=== PATIENT | male | born 1960 | race Caucasian/White ===

== ENCOUNTER → 2016-11-27 | Outpatient (CLI) | payer BC ==
--- NOTE | 2016-11-27 08:10 | XR ---
EXAMINATION TYPE: XR Hip Complete RT DATE OF EXAM: 11/27/2016 7:50 AM CLINICAL HISTORY: Right hip pain increasing in severity over 1 year TECHNIQUE: AP and frogleg views of the right hip are obtained. COMPARISON: None. FINDINGS: Osseous structures are demineralized which is noted to lower radiographic sensitivity Ther e is no acute fracture/dislocation evident in the right hip. There is advanced superior joint space l oss. There is ossific fragmentation from superolateral aspect of the acetabulum. There is some subcho ndral cystic change in the femoral head. There is moderate spurring at head neck junction inferiorly. Some right-sided pelvic phleboliths and vascular calcification is present in the pelvis. IMPRESSION: There is moderate to severe degenerative changes in right hip as detailed above
== END | disposition home or self-care (01) ==
LOC: RADXRMAIN 07:29
PROVIDERS: ATTEND Family Medicine
DX: M25.851 Other specified joint disorders, right hip (principal); R10.30 Lower abdominal pain, unspecified
CPT/HCPCS: 73502

== ENCOUNTER → 2017-08-18 | Outpatient (CLI) | payer BC ==
[2017-08-18 14:25] LABS: EKG EKG PERFORMED
[2017-08-18 14:55] LABS: Basophils # (A) 0.1 k/uL (0-0.2); Basophils % (A) 1 %; CH 34.7; CHCM 33.8; Eosinophils # (A) 0.2 k/uL (0-0.7); Eosinophils % (A) 2 %; HCT 51.2 % (39.0-53.0); HDW 2.44; HGB 16.8 gm/dL (13.0-17.5); Luc # (Auto) 0.11; Luc % (Auto) 2; Lymphocytes # (A) 1.5 k/uL (1.0-4.8); Lymphocytes % (A) 21 %; MCH 33.8 pg (25.0-35.0); MCHC 32.8 g/dL (31.0-37.0); MCV 103.3 fL (80.0-100.0); Macrocytosis Slight; Mean Platelet Volume 8.3; Monocytes # (A) 0.5 k/uL (0-1.0); Monocytes % (A) 8 %; Neutrophils # (A) 4.7 k/uL (1.3-7.7); Neutrophils % (A) 67 %; RBC 4.96 m/uL (4.30-5.90); RDW 13.4 % (11.5-15.5); WBC (Perox) 6.81
[2017-08-18 15:02] LABS: ALT 68 U/L (21-72); AST 35 U/L (17-59); Alkaline Phosphatase 79 U/L (38-126); Anion Gap 15 mmol/L; Blood Urea Nitrogen 19 mg/dL (9-20); Carbon Dioxide 22 mmol/L (22-30); Chloride 105 mmol/L (98-107); Glucose 114 mg/dL (74-99); Non-African American GFR(MDRD) >60 (>60 ml/min/1.73 sqM); Potassium 4.9 mmol/L (3.5-5.1); Sodium 142 mmol/L (137-145); Total Bilirubin 0.5 mg/dL (0.2-1.3); Total Protein 7.7 g/dL (6.3-8.2)
[2017-08-18 15:04] LABS: Appearance,Urine Clear (Clear); Bilirubin,Urine Negative (Negative); Glucose,Urine (UA) Negative (Negative); Ketones,Urine 2+ (Negative); Leukocyte Esterase,Urine Negative (Negative); Nitrite,Urine Negative (Negative); PH, Urine 5.5 (5.0-8.0); Protein,Urine Negative (Negative); Specific Gravity,Urine 1.014 (1.001-1.035); UA Billing (MACRO vs. MICRO) CHEM; Urobilinogen,Urine <2.0 mg/dL (<2.0)
[2017-08-18 15:11] LABS: INR 1.1 (<1.2); Prothrombin Time 11.4 sec (9.0-12.0)
== END | disposition home or self-care (01) ==
LOC: LABPAT 13:54
PROVIDERS: ATTEND Orthopaedic Surgery
DX: Z01.810 Encounter for preprocedural cardiovascular examination (principal); Z01.812 Encounter for preprocedural laboratory examination
CPT/HCPCS: 80053; 81003; 85025; 85610; 85730; 87070; 93005

== ENCOUNTER 2017-08-30 07:55 | Inpatient (IN) | payer BC ==
[2017-08-22 08:33] VITALS: BMI 31.3
[~2017-08-30 07:55] MED LIST: ACETAMINOPHEN TAB 500 MG TAB PO ONE; MELOXICAM 7.5 MG TAB PO ONE; ONDANSETRON 4 MG/2 ML VIAL IVP PRN; ROPIVACAINE 246.25 MG, EPINEPHrine 0.5 MG, KETOROLAC 30 MG, cloNIDine HCL/PF 80 MCG, WA... MISCELLANE ONE; TRANEXAMIC ACID 1,000 MG in SODIUM CHLORIDE 0.9% 100 ML IVPB ONE; ceFAZolin 2 GM in SODIUM CHLORIDE 0.9% 100 ML IVPB ONE
[2017-08-30] MEDS ORDERED: LACTATED RINGERS 1,000 ML IV ONE ×2 (08:14→11:15)
[2017-08-30 08:26] LABS: Glucose,Whole Blood 125 mg/dL (75-99)
[2017-08-30] MEDS ORDERED: HYDROmorphone 1 MG/ML 1 ML SYRINGE IVP PRN (09:39)
[2017-08-30] MEDS ORDERED: DIAZEPAM 5 MG TAB PO PRN ×2 (09:39)
[2017-08-30] MEDS ORDERED: MAGNESIUM HYDROXIDE 2,400 MG/10 ML CUP PO PRN (09:39)
[2017-08-30] MEDS ORDERED: hydrOXYzine PAMOATE 25 MG CAP PO PRN (09:39)
[2017-08-30] MEDS ORDERED: ONDANSETRON 4 MG/2 ML VIAL IVP PRN ×2 (09:39→20:06)
[2017-08-30] MEDS ORDERED: HYDROcodone/APAP 5-325MG 1 EACH TAB PO PRN (09:39)
[2017-08-30] MEDS ORDERED: HYDROmorphone 0.5 MG/0.5 ML SYRINGE IVP PRN ×2 (09:39)
[2017-08-30] MEDS ORDERED: NALOXONE 0.4 MG/ML 1 ML VIAL IV PRN (09:39)
[2017-08-30] MEDS ORDERED: PHENYLEPHRINE-0.9% NACL SYG 1 MG/10 ML SYRINGE ONE (10:07)
[2017-08-30] MEDS ORDERED: SODIUM CHLORIDE 0.9% IRRIG 1,000 ML BTL IRRIGATION ONE (10:07)
[2017-08-30] MEDS ORDERED: HEPARIN SODIUM,PORCINE 10,000 UNIT/ML 1 ML VIAL ONE (10:07)
[2017-08-30] MEDS ORDERED: PROPOFOL 10 MG/ML 20 ML VIAL IV ONE (10:07)
[2017-08-30] MEDS ORDERED: SODIUM CHLORIDE 0.9% 100 ML BAG ONE (10:07)
[2017-08-30] MEDS ORDERED: MIDAZOLAM 2 MG/2 ML VIAL ONE (10:07)
[2017-08-30] MEDS ORDERED: fentaNYL (PF) 50 MCG/ML 2 ML AMP ONE (10:07)
[2017-08-30] MEDS ORDERED: TRANEXAMIC ACID 1,000 MG/10 ML VIAL ONE (10:07)
[2017-08-30] MEDS ORDERED: KETAMINE 10 MG/ML 20 ML VIAL ONE (10:07)
[2017-08-30] MEDS ORDERED: ceFAZolin 3,000 MG in SODIUM CHLORIDE 0.9% IRRIGATIO 3,000 ML IRRIGATION ONE (10:10)
--- NOTE | 2017-08-30 11:49 | FL ---
EXAMINATION TYPE: FL guidance operating room, XR Hip Limited RT DATE OF EXAM: 08/30/2017 CLINICAL HISTORY: Right hip advanced osteoarthritis. TECHNIQUE: Fluoroscopy. Limited views right hip COMPARISON: None. FINDINGS: Fluoroscopic guidance was provided during hip replacement procedure performed by Dr. Hanna stoddard. A total of 48 seconds of fluoroscopic time was utilized during the procedure and 2 spot intraop erative images are acquired. Intraoperative limited views right hip show metallic hardware from total right hip arthroplasty that is satisfactory in position on single frontal projection. IMPRESSION: As Above.
--- NOTE | 2017-08-30 11:51 | P.OP ---
Date of Procedure: 08/30/17 Preoperative Diagnosis: Severe osteoarthritis right hip Postoperative Diagnosis: Severe osteoarthritis right hip Procedure(s) Performed: Right total hip arthroplasty with a direct anterior approach Implants: Zhu and nephew Polarstem size 3 standard Zhu & Nephew R3, 3 hole acetabular shell, 54 mm Zhu [employer] Nephew reflection 6.5 mm cancellus screw, 20 mm 2 Zhu [employer] Nephew R3, XLPE 20 acetabular liner Zhu & Nephew Oxinium femoral head 36 m, +4 All components were press-fit. The articulation is Oxinium on polyethylene. Anesthesia: spinal Surgeon: Kennedy Zamora Easter Bunny #1: Virginia Fried Estimated Blood Loss (ml): 700 (278 mL returned with Cell Saver) Pathology: other (Femoral head) Condition: stable Disposition: PACU Indications for Procedure: After failure of conservative treatment we discussed the surgical and nonsurgical treatment options at length. Patient wishes to proceed with a total hip arthroplasty with a direct anterior approach. Complications specific to this procedure were discussed at length, including but not limited to infection, leg length discrepancy, dislocation, and nerve injury. Patient is aware of all these complications and informed consent was obtained Operative Findings: The operative findings are consistent with severe osteoarthritis of the right hip Description of Procedure: Patient was seen and evaluated in the preoperative area, consent was reviewed, and the surgical site was marked with a skin marker. Patient was then brought to the operating room and given prophylactic antibiotics intravenously. 1 g of Tranexamic acid was also given. A spinal anesthetic was administered by the anesthesia department. The patient was then placed on the [place] table with the bony prominences well-padded. The hip area was then prepped and draped in usual sterile fashion. A universal timeout was then performed, which confirmed the patient's name, surgical site, ALLERGIES, and procedure being performed. Next the incision site was located at 1 cm distal and 1 cm lateral to the anterior superior iliac spine. The skin and subcutaneous tissues were sharply incised. Incision was carefully dissected down to the fascia overlying the tensor fascia qi muscle. This fascia was then incised in line with the incision. Next, using blunt finger dissection, the tensor fascia qi muscle was dissected off its investing fascia. The muscle was then carefully retracted laterally with a cobra retractor over the lateral neck of the femur. Next, the circumflex vessels were identified and cauterized using the AquaMantis device. The anterior hip capsule was then exposed. The capsule was then opened and an inverted T fashion. Cobra retractors were then placed intracapsularly. The proximal femur was then visualized. The femoral neck was then osteotomized appropriate level above the lesser trochanter. Small amount of traction was placed with the [place] table. A small wedge of bone was then removed from the remaining femoral head. Next, using a corkscrew femoral head was easily removed from the acetabulum. On gross visual inspection, the femoral head had complete loss of articular cartilage in multiple periarticular osteophytes. Attention was then turned to the acetabulum. the acetabulum was exposed and any remaining labrum was excised. Sequential reaming of the acetabulum was performed using fluoroscopic guidance. When the appropriate size was reached, a trial was then placed. The position and fit of the trial was checked with fluoroscopy. The trial was then removed. Then, using fluoroscopic guidance, the final implant was impacted at 20 of anteversion and 40 of abduction, and fully seated in the acetabulum. 2 screws were then placed in the acetabulum. Again fluoroscopy was used to check position of the screws. Next, the liner was then impacted, with a 20 elevated liner located in the anterior superior quadrant. Component locking was confirmed. Attention was then directed to the femur. With the aid of the [place] table, the femur was externally rotated to approximately 130, extended, and abducted under the opposite leg. A side hook was then placed under the proximal femur, and the side hook elevator was used to elevate the proximal femur. Retractors were then placed. A capsular release was performed, as well as a release of the conjoined tendon, which afforded excellent visualization of the proximal femur. Next, a box osteotome was used to lateralize the proximal femur. A digester hand was then used to locate the femoral canal. Sequential broaching was then performed with appropriate size which afforded excellent fixation in the proximal femur. A trial was then placed with appropriate head and neck, and the hip was gently reduced with the aid of the [place] table. Fluoroscopy was then used to check position of the components, as well as to ensure equal leg lengths. The hip was then gently dislocated and the trials were then removed. Final implants were then impacted and the hip was again reduced. Final fluoroscopic x-rays confirmed that the components were in anatomic position, as well as equal leg lengths. The hip was also taken through range of motion, and found to be stable. The hip was then copiously irrigated with antibiotic solution with pulsatile lavage. The hip was then irrigated with Irrisept solution. The soft tissues were then injected with a ropivacaine solution, which consisted of 246.25 mg of ropivacaine, 0.5 mg of epinephrine, 30 mg of Toradol, 80 g of clonidine, and 48.45 mL of sterile water, for a total of 100 mL of fluid injected. A second dose of 1 g of Tranexamic acid was also given. the fascia was then closed with 2-0 strata fix suture. The subcutaneous tissue was closed with 3-0 Vicryl. The subcuticular tissue was closed with 3-0 strata fix suture. The skin was then closed with Dermabond tape. The patient was then transferred to the recovery room in stable condition. The business support assistant GARETT Walton was required due to the complexity of surgery, and the need for skilled surgical elastic knitter hand frame for positioning, draping, exposure, retraction, and closure of the wound.
[2017-08-30 12:31] LABS: Glucose,Whole Blood 145 mg/dL (75-99)
--- NOTE | 2017-08-30 12:34 | XR ---
EXAMINATION TYPE: XR Hip Limited RT DATE OF EXAM: 08/30/2017 CLINICAL HISTORY: Postoperative evaluation TECHNIQUE: Single portable view of the right hip was submitted. FINDINGS: Noted are changes of total hip arthroplasty with femoral and acetabular components appearin g well seated. Alignment is anatomic. Postsurgical soft tissue changes are evident. IMPRESSION: Satisfactory postoperative alignment
[2017-08-30] MEDS: HYDROmorphone 0.5 MG/0.5 ML SYRINGE IVP PRN ×2 (13:11→13:51)
[2017-08-30] MEDS: LACTATED RINGERS 1,000 ML IV SCH ×2 (14:00→15:44)
[2017-08-30] MEDS: SODIUM CHLORIDE 0.9% 1,000 ML IV SCH ×2 (15:34→23:57)
[2017-08-30 16:54] LABS: Glucose,Whole Blood 151 mg/dL (75-99)
[2017-08-30] MEDS: ceFAZolin 2 GM in SODIUM CHLORIDE 0.9% 100 ML IVPB SCH (17:27)
[2017-08-30 20:41] LABS: Glucose,Whole Blood 161 mg/dL (75-99)
[2017-08-30] MEDS: INSULIN LISPRO (humaLOG) 300 UNIT/3 ML VIAL SQ SCH (20:44)
[2017-08-30] MEDS: ASPIRIN 325 MG TAB PO SCH (20:45)
[2017-08-30] MEDS: metFORMIN 500 MG TAB PO SCH (20:45)
[2017-08-30] MEDS: HYDROcodone/APAP 5-325MG 1 EACH TAB PO PRN (20:52)
[2017-08-30] MEDS ORDERED: ATORVASTATIN 40 MG TAB PO SCH (21:00)
[2017-08-30] MEDS ORDERED: SENNOSIDES-DOCUSATE SODIUM 1 EACH TAB PO SCH (21:00)
[2017-08-30] MEDS ORDERED: INSULIN DETEMIR 100 UNIT/ML 10 ML VIAL SQ SCH (21:00)
[2017-08-31] MEDS: ceFAZolin 2 GM in SODIUM CHLORIDE 0.9% 100 ML IVPB SCH (02:41)
[2017-08-31] MEDS: HYDROcodone/APAP 5-325MG 1 EACH TAB PO PRN ×2 (05:26→11:29)
[2017-08-31 07:20] LABS: Glucose,Whole Blood 153 mg/dL (75-99)
[2017-08-31 07:23] VITALS: BP 132/83; PULSE 81; RESP 16; TEMP 97.7
[2017-08-31] MEDS: ASPIRIN 325 MG TAB PO SCH (07:50)
[2017-08-31] MEDS: metFORMIN 500 MG TAB PO SCH (07:51)
[2017-08-31 07:57] LABS: Basophils % (A) 0 %; CHCM 34.1; Eosinophils # (A) 0.1 k/uL (0-0.7); Eosinophils % (A) 1 %; HCT 40.5 % (39.0-53.0); Luc % (Auto) 1; Lymphocytes # (A) 1.1 k/uL (1.0-4.8); Lymphocytes % (A) 13 %; MCH 33.8 pg (25.0-35.0); MCHC 32.7 g/dL (31.0-37.0); MCV 103.2 fL (80.0-100.0); Macrocytosis Slight; Mean Platelet Volume 8.5; Monocytes # (A) 0.9 k/uL (0-1.0); Monocytes % (A) 10 %; Neutrophils # (A) 6.2 k/uL (1.3-7.7); Neutrophils % (A) 74 %; RBC 3.92 m/uL (4.30-5.90); RDW 13.3 % (11.5-15.5); WBC 8.4 k/uL (3.8-10.6); WBC (Perox) 8.44
[2017-08-31 08:11] LABS: HGB 13.2 gm/dL (13.0-17.5)
[2017-08-31] MEDS: INSULIN LISPRO (humaLOG) 300 UNIT/3 ML VIAL SQ SCH ×2 (08:12→12:25)
--- NOTE | 2017-08-31 08:20 | P.DS ---
Providers Date of admission: 08/30/17 07:55 Expected date of discharge: 08/31/17 Attending physician: Kennedy Zamora Consults: 08/30/17 09:39 Consult Physician Routine Consulting Provider: Dixon Lee Jr Consult Reason/Comments: medical management Do you want consulting provider notified?: Yes Primary care physician: Dixon Lee - Discharge Diagnosis(es) (1) Primary osteoarthritis of right hip Current Visit: Yes Status: Acute (2) S/P total hip arthroplasty Current Visit: Yes Status: Acute Hospital Course: This is a 57-year-old male with known history of degenerative arthritis of the right hip. The patient presents for evaluation. After discussion and consideration patient elects to proceed with total hip arthroplasty. The patient is seen preoperatively by Dr. Zamora and cleared for surgery. Patient is admitted to [facility] on 08/30/2017 for total hip arthroplasty. The procedures performed without complication or sequelae. The patient is doing well postoperatively. Labs and vital signs are stable on day of discharge. On day of discharge patient's hip incision is healing well. There is minimal erythema. There is no drainage noted at this time. There is minimal soft tissue swelling to the hip and thigh. Patient has full foot and ankle motion without difficulty or pain. Neurovascular status to the right lower extremity is intact. Patient is discharged home in good condition.Please see med rec for accurate list of home medications. Plan - Discharge Summary New Discharge Prescriptions: New Aspirin 325 mg PO BID #60 tab HYDROcodone/APAP 5-325MG [[place] 5-325] 1 - 2 tab PO Q4-6H PRN #90 tab PRN Reason: Pain Sennosides-Docusate Sodium [Senokot-S] 1 tab PO BID #60 tablet No Action metFORMIN HCL [Glucophage] 500 mg PO BID Quinapril HCl 10 mg PO DAILY Cholecalciferol [Vitamin D3] 5,000 unit PO BID Atorvastatin [Lipitor] 40 mg PO HS Insulin Detemir [Levemir] 8 - 16 unit SQ HS Insulin Aspart [Novolog] 6 - 8 unit SQ AC-TID PRN PRN Reason: TO SCALE Ibuprofen [Motrin] 800 mg PO Q8H PRN PRN Reason: Pain Fish Oil/Dha/Epa [Fish Oil 1,200 mg Fish Oil] 2 cap PO BID Aspirin [Adult Low Dose Aspirin EC] 81 mg PO DAILY Discharge Medication List Aspirin [Adult Low Dose Aspirin EC] 81 mg PO DAILY 08/23/17 [History] Atorvastatin [Lipitor] 40 mg PO HS 08/23/17 [History] Cholecalciferol [Vitamin D3] 5,000 unit PO BID 08/23/17 [History] Fish Oil/Dha/Epa [Fish Oil 1,200 mg Fish Oil] 2 cap PO BID 08/23/17 [History] Ibuprofen [Motrin] 800 mg PO Q8H PRN 08/23/17 [History] Insulin Aspart [Novolog] 6 - 8 unit SQ AC-TID PRN 08/23/17 [History] Insulin Detemir [Levemir] 8 - 16 unit SQ HS 08/23/17 [History] Quinapril HCl 10 mg PO DAILY 08/23/17 [History] metFORMIN HCL [Glucophage] 500 mg PO BID 08/23/17 [History] Aspirin 325 mg PO BID #60 tab 08/31/17 [Rx] HYDROcodone/APAP 5-325MG [[place] 5-325] 1 - 2 tab PO Q4-6H PRN #90 tab 08/31/17 [ Rx] Sennosides-Docusate Sodium [Senokot-S] 1 tab PO BID #60 tablet 08/31/17 [Rx] Follow up Appointment(s)/Referral(s): Kennedy Zamora DO [Doctor of Osteopathic Medicine] - 2 Weeks Activity/Diet/Wound Care/Special Instructions: Weightbearing as tolerated with walker May shower after 2 days if no drainage from the incision Follow-up with [facility] in 2 weeks with any questions or concerns Discharge Disposition: HOME WITH HOME HEALTH SERVICES
[2017-08-31] MEDS ORDERED: MELOXICAM 7.5 MG TAB PO SCH (09:00)
[2017-08-31] MEDS ORDERED: LISINOPRIL 10 MG TAB PO SCH (09:00)
[2017-08-31 12:24] LABS: Glucose,Whole Blood 202 mg/dL (75-99)
[2017-08-31] MEDS ORDERED: HYDROcodone/APAP 5-325MG 1 EACH TAB PO PRN ×2 (12:39→12:41)
[2017-08-31 12:40] LABS: Hemoglobin A1C 6.8 % (4.2-6.1)
--- NOTE | 2017-08-31 14:05 | P.CONS ---
History of Present Illness - Reason for Consult Consult date: 08/31/17 - Chief Complaint Medical Management - History of Present Illness 57 year old male who underwent a right total hip arthroplasty with Dr. Zamora on 08/30/17. He was admitted after surgery to the surgical unit and Dr. Lee was consulted for medical management. The patient has a history of diabetes mellitus, hyperlipidemia, hypertension, and osteoarthritis. The patient was seen and examined at the bedside. He is sitting up in the chair. He feels good and is anticipating discharge this afternoon. He states his pain is tolerable. He is eating a regular diet with no nausea or vomiting. His vital signs are stable. Lab work was reviewed. Review of Systems Those systems with pertinent positive or pertinent negative responses have been documented in the HPI Past Medical History Past Medical History: Diabetes Mellitus, Hyperlipidemia, Hypertension, Osteoarthritis (OA) History of Any Multi-Drug Resistant Organisms: None Reported Past Surgical History: Orthopedic Surgery Additional Past Surgical History / Comment(s): bilat knee scope. colonoscopy Past Anesthesia/Blood Transfusion Reactions: No Reported Reaction Additional Psychological History / Comment(s): CLAUSTROPHOBIA Smoking Status: Never smoker Past Alcohol Use History: None Reported Past Drug Use History: None Reported - Past Family History Mother Family Medical History: Cancer Father Family Medical History: Cancer Medications and Allergies Home Medications Medication Instructions Recorded Confirmed Type Aspirin [Adult Low Dose Aspirin EC] 81 mg PO DAILY 08/23/17 08/30/17 History Atorvastatin [Lipitor] 40 mg PO HS 08/23/17 08/30/17 History Cholecalciferol [Vitamin D3] 5,000 unit PO BID 08/23/17 08/30/17 History Fish Oil/Dha/Epa [Fish Oil 1,200 2 cap PO BID 08/23/17 08/30/17 History mg Fish Oil] Ibuprofen [Motrin] 800 mg PO Q8H PRN 08/23/17 08/30/17 History Insulin Aspart [Novolog] 6 - 8 unit SQ AC-TID PRN 08/23/17 08/30/17 History Insulin Detemir [Levemir] 8 - 16 unit SQ HS 08/23/17 08/30/17 History Quinapril HCl 10 mg PO DAILY 08/23/17 08/30/17 History metFORMIN HCL [Glucophage] 500 mg PO BID 08/23/17 08/30/17 History Aspirin 325 mg PO BID #60 tab 08/31/17 Rx HYDROcodone/APAP 5-325MG [[place] 1 - 2 tab PO Q4-6H PRN #90 tab 08/31/17 Rx 5-325] Sennosides-Docusate Sodium 1 tab PO BID #60 tablet 08/31/17 Rx [Senokot-S] Allergies Allergy/AdvReac Type Severity Reaction Status Date / Time No Known Allergies Allergy Verified 08/30/17 15:17 Physical Exam Vitals: Vital Signs Temp Pulse Resp BP Pulse Ox 08/31/17 07:00 97.7 F 81 16 132/83 96 08/31/17 02:24 97.8 F 80 17 124/72 94 L 08/30/17 20:54 96.8 F L 84 17 140/68 98 08/30/17 16:30 69 129/76 08/30/17 16:15 133/75 08/30/17 16:00 71 152/94 08/30/17 15:45 74 143/78 08/30/17 15:30 75 147/95 08/30/17 15:15 69 145/92 08/30/17 15:00 141/86 08/30/17 14:45 70 110/87 08/30/17 14:30 68 139/80 08/30/17 14:15 96.9 F L 67 16 150/84 97 Intake and Output 08/30/17 08/31/17 08/31/17 22:59 06:59 14:59 Intake Total 800 Output Total 400 Balance -400 800 Intake: Intake, IV Titration 800 Amount Sodium Chloride 0.9% 1, 800 000 ml @ 70 mls/hr IV . [id number] [facility] Rx#:[id number] Output: Urine 400 Other: # Voids 3 Weight 93.44 kg GENERAL: Alert and oriented. Appears in no acute distress. Pleasant. Sitting up in the chair. RESPIRATORY: Lungs clear bilaterally. No use of accessory muscles. Patient maintaining oxygen saturation greater than 92%. CARDIOVASCULAR: S1 and S2 noted. No murmurs auscultated. No JVD noted. EXTREMITIES: No edema noted. Palpable pedal pulses +2. Dressing dressing to right hip clean dry and intact ABDOMEN: No distention noted. Abdomen soft and round. Normal active bowel sounds auscultated 4 quadrants. No pain or tenderness noted upon palpation. Results CBC & Chem 7: 08/31/17 06:45 Labs: Abnormal Lab Results - Last 24 Hours (Table) 08/30/17 08/30/17 08/31/17 Range/Units 16:33 20:28 06:45 RBC (4.30-5.90) m/uL MCV (80.0-100.0) fL POC Glucose (mg/dL) 151 H 161 H (75-99) mg/dL Hemoglobin A1c 6.8 H (4.2-6.1) % 08/31/17 08/31/17 08/31/17 Range/Units 06:45 07:18 12:17 RBC 3.92 L (4.30-5.90) m/uL MCV 103.2 H (80.0-100.0) fL POC Glucose (mg/dL) 153 H 202 H (75-99) mg/dL Hemoglobin A1c (4.2-6.1) % Assessment and Plan Plan: ASSESSMENT: -S/P right total hip arthroplasty -Osteoarthritis -Diabetes mellitus, type II -Essential hypertension -hyperlipidemia PLAN: -Continue post operative surgical care per orthopedics -Resume home meds as appropriate -Monitor labs -GI/DVT prophylaxis -Monitor vital signs and address as appropriate -Patient is medically cleared for discharge when okay with ortho The above impression and plan of care have been discussed and directed by signing physician. Ashlie Lopez, nurse practitioner, acting as scribe for signing physician.
== END 2017-08-31 13:47 | disposition home health service (06) | DRG 470 ==
LOC: 2ORMAIN 07:55 → 3SUR 11:58
PROVIDERS: ADMIT Orthopaedic Surgery; ATTEND Orthopaedic Surgery
PROC: 0SR906A Replacement of Right Hip Joint with Oxidized Zirconium on Polyethylene Synthetic Substitute, Uncemented, Open Approach (ICD-10-PCS; principal; 2017-08-30 09:45)
DX: M16.11 Unilateral primary osteoarthritis, right hip (principal); E11.9 Type 2 diabetes mellitus without complications; E78.5 Hyperlipidemia, unspecified; I10 Essential (primary) hypertension; Z79.1 Long term (current) use of non-steroidal anti-inflammatories (NSAID); Z79.4 Long term (current) use of insulin; Z79.899 Other long term (current) drug therapy; Z79.82 Long term (current) use of aspirin
CPT/HCPCS: 36415; 73501; 83036; 85025; 86850; 86891; 86900; 86901; 88300

== ENCOUNTER 2025-03-06 19:13 | Inpatient (IN) | payer MEDICARE ==
--- NOTE | 2025-03-06 20:08 | ED ---
Abdominal Pain HPI - General Source: patient, RN notes reviewed Mode of arrival: wheelchair Limitations: no limitations <Kd Arroyo - Last Filed: 03/06/25 23:33> <Silvia Mckenzie - Last Filed: 03/07/25 05:02> - General Chief Complaint: Abdominal Pain Stated Complaint: NVD, priya arm numbness Time Seen by Provider: 03/06/25 19:31 - History of Present Illness Initial Comments: This is a 65-year-old male with history of DM, hypertension hyperlipidemia presenting with for abdominal pain (08/30) x 4 days. Patient states pain is diffuse, constant, described as cramping. States pain worsened significantly at noon today with associated N/V/D and decreased appetite. Denies recent trauma or known cause for pain. Denies fever, chills, chest pain, dyspnea, constipation, hematemesis, hematochezia, melena, dysuria, obvious hematuria. (Kd Arroyo) - Related Data Home Medications Medication Instructions Recorded Confirmed Atorvastatin [Lipitor] 20 mg PO HS 08/23/17 01/24/23 Cholecalciferol [Vitamin D3] 5,000 unit PO DAILY 08/23/17 01/24/23 Insulin Aspart [Novolog] 8 unit SQ AC-TID 08/23/17 01/24/23 Quinapril HCl 10 mg PO DAILY 08/23/17 01/24/23 metFORMIN HCL [Glucophage] 500 mg PO DAILY 08/23/17 01/24/23 Insulin Glargine,Hum.rec.anlog 10 units SQ HS 01/18/23 01/24/23 [Lantus Solostar Pen] Previous Rx's Medication Instructions Recorded oxyCODONE HCL [OxyIR] 5 mg PO Q6H PRN 3 Days #6 tab 01/24/23 Allergies Allergy/AdvReac Type Severity Reaction Status Date / Time No Known Allergies Allergy Verified 03/06/25 19:27 Review of Systems ROS Other: All systems not noted in ROS Statement are negative. <Kd Arroyo - Last Filed: 03/06/25 23:33> ROS Other: All systems not noted in ROS Statement are negative. <Silvia Mckenzie - Last Filed: 03/07/25 05:02> ROS Statement: Those systems with pertinent positive or pertinent negative responses have been documented in the HPI. Past Medical History Past Medical History: Diabetes Mellitus, Hyperlipidemia, Hypertension, Osteoarthritis (OA) History of Any Multi-Drug Resistant Organisms: None Reported Past Surgical History: Orthopedic Surgery Additional Past Surgical History / Comment(s): bilat knee scope, bilateral hip replacement. colonoscopy Past Anesthesia/Blood Transfusion Reactions: No Reported Reaction Past Psychological History: No Psychological Hx Reported Smoking Status: Never smoker Past Alcohol Use History: None Reported Past Drug Use History: None Reported - Past Family History Mother Family Medical History: Cancer Father Family Medical History: Cancer <CruzKd - Last Filed: 03/06/25 23:33> General Exam Limitations: no limitations General appearance: alert, in distress (Patient rolling in bed attributed to pain) Head exam: Present: atraumatic, normocephalic, normal inspection Eye exam: Present: normal appearance, PERRL, EOMI. Absent: scleral icterus, conjunctival injection, periorbital swelling ENT exam: Present: normal exam, mucous membranes moist Neck exam: Present: normal inspection. Absent: tenderness, meningismus, lymphadenopathy Respiratory exam: Present: normal lung sounds bilaterally. Absent: respiratory distress, wheezes, rales, rhonchi, stridor, accessory muscle use Cardiovascular Exam: Present: regular rate, normal rhythm, normal heart sounds. Absent: systolic murmur, diastolic murmur, rubs, gallop, clicks GI/Abdominal exam: Present: soft, tenderness (Diffuse abdominal tenderness without guarding. Negative Rovsing, Mcneill sign), normal bowel sounds. Absent: distended, guarding, rebound, rigid, mass, pulsatile mass, hernia Extremities exam: Present: normal inspection, full ROM, normal capillary refill, other (Bilateral dorsalis pedis pulse +1 and thready). Absent: tenderness, pedal edema, joint swelling, calf tenderness Back exam: Present: normal inspection. Absent: CVA tenderness (R), CVA tenderness (L) Neurological exam: Present: alert, oriented X3, CN II-XII intact Psychiatric exam: Present: normal affect, normal mood Skin exam: Present: warm, dry, intact, normal color. Absent: rash <CruzKd - Last Filed: 03/06/25 23:33> Course Vital Signs 03/06/25 03/06/25 03/06/25 19:22 21:24 21:47 Temperature 97.6 F Pulse Rate 90 72 81 Respiratory 18 16 16 Rate Blood Pressure 134/68 136/70 142/98 O2 Sat by Pulse 98 97 98 Oximetry 03/06/25 23:26 Temperature Pulse Rate 84 Respiratory 16 Rate Blood Pressure 108/56 O2 Sat by Pulse 97 Oximetry Medical Decision Making - Lab Data Result diagrams: 03/06/25 20:12 03/06/25 20:12 <Kd Arroyo - Last Filed: 03/06/25 23:33> - Lab Data Result diagrams: 03/06/25 20:12 03/06/25 20:12 <Silvia Mckenzie Mumtaz - Last Filed: 03/07/25 05:02> - Medical Decision Making Was pt. sent in by a medical professional or institution (GARETT Baker, MACHINE OPERATOR CANE CUTTER, urgent care, hospital, or correction...) When possible be specific @ -No Did you speak to anyone other than the patient for history (EMS, parent, family, police, friend...)? What history was obtained from this source @ -No Did you review nursing and triage notes (agree or disagree)? Why? @ -I reviewed and agree with nursing and triage notes Were old charts reviewed (outside hosp., previous admission, EMS record, old EKG, old radiological studies, urgent care reports/EKG's, correction records)? Report findings @ -No old charts were reviewed Differential Diagnosis (chest pain, altered mental status, abdominal pain women, abdominal pain men, vaginal bleeding, weakness, fever, dyspnea, syncope, headache, dizziness, GI bleed, back pain, seizure, CVA, palpatations, mental health, musculoskeletal)? @ -Differential Abdominal Pain Men: Appendicitis, cholecystitis, diverticulosis, ischemic bowel, pancreatitis, hepatitis, UTI, gastroenteritis, AAA, incarcerated hernia, bowel obstruction, constipation, inflammatory bowel, hepatitis, peptic ulcer disease, splenic infarction, perforated viscus, testicular torsion, this is not meant to be an all-inclusive list EKG interpreted by me (3pts min.). @ -Sinus rhythm without ST deviation or T wave inversion. Ventricular rate 88 bpm, KASSY 144 ms, QRS 94 ms, QTc 419 ms. X-rays interpreted by me (1pt min.). @ -CXR shows no acute cardiopulmonary process CT interpreted by me (1pt min.). @ -Abdomen/pelvic CT shows 7 mm right mid ureter calculus with mild right hydronephrosis. 3 renal calculi in left kidney measure between 9-10 mm with partial obstruction and renal pelvis and no left side hydronephrosis. U/S interpreted by me (1pt. min.). @ -None done What testing was considered but not performed or refused? (CT, X-rays, U/S, labs)? Why? @ -None What meds were considered but not given or refused? Why? @ -None Did you discuss the management of the patient with other professionals (jamel peralta i.e. , PA, MACHINE OPERATOR [employer]E CUTTER, lab, RT, psych nurse, social service technician, foundation director, teacher, guest relation officer, home health care case manager)? Give summary @ -Dr. Chu from urology contacted, advising to place patient n.p.o. after midnight. Dr. Lee contacted for patient admission. Was smoking cessation discussed for >3mins.? @ -No Was critical care preformed (if so, how long)? @ -No Were there social determinants of health that impacted care today? How? (Homelessness, low income, unemployed, alcoholism, drug addiction, transportation, low edu. Level, literacy, decrease access to med. care, residential, re hab)? @ -No Was there de-escalation of care discussed even if they declined (Discuss DNR or withdrawal of care, Hospice)? DNR status @ -No What co-morbidities impacted this encounter? (DM, HTN, Smoking, COPD, CAD, Cancer, CVA, ARF, Chemo, Hep., AIDS, mental health diagnosis, sleep apnea, morbid obesity)? @ -None Was patient admitted / discharged? Hospital course, mention meds given and route, prescriptions, significant lab abnormalities, going to OR and other pertinent info. @ -Lab work shows leukocytosis 13.3, anion gap 18 and slightly diminished kidney function with BUN 21. Hyperglycemia 148, lactic acid 2.2 and magnesium 1.5. Troponin, amylase and lipase are within normal limits. UA shows hematuria and ketonuria. CXR shows no acute cardiopulmonary process. Abdomen/pelvic CT shows 7 mm right mid ureter calculus with mild right hydronephrosis. 3 renal calculi in left kidney measure between 9-10 mm with partial obstruction and renal pelvis and no left side hydronephrosis. Patient presenting with significant pain presentation initially provided IV normal saline, Dilaudid, Pepcid, Protonix and Zofran. As well as p.o. Tylenol. Upon return of labs, IV magnesium sulfate provided as well as additional IV Dilaudid and Reglan due to ongoing pain (06/30) and nausea. Due to intractable pain, Dr. Chu from urology contacted, advising to place patient n.p.o. after midnight. Dr. Lee contacted for patient admission. Patient provided p.o. tamsulosin and will continue pain/nausea management until patient can be seen for definitive treatment. Discussed patient with Dr. Mckenzie. Undiagnosed new problem with uncertain prognosis? @ -No Drug Therapy requiring intensive monitoring for toxicity (Heparin, Nitro, Insulin, Cardizem)? @ -No Were any procedures done? @ -No Diagnosis/symptom? @ -Bilateral nephrolithiasis with right hydronephrosis and intractable pain Acute, or Chronic, or Acute on Chronic? @ -Acute Uncomplicated (without systemic symptoms) or Complicated (systemic symptoms)? @ -Complicated Side effects of treatment? @ -No Exacerbation, Progression, or Severe Exacerbation? @ -Severe exacerbation Poses a threat to life or bodily function? How? (Chest pain, [place], [place], pneumonia, PE, COPD, DKA, ARF, appy, cholecystitis, CVA, Diverticulitis, Homicidal, Suicidal, threat to staff... and all critical care pts) @ -No (Kd Arroyo) - Lab Data Lab Results 03/06/25 03/06/25 03/06/25 Range/Units 19:38 20:12 20:12 WBC 13.33 H (4.50-10.00) 10*3/uL RBC 5.10 (4.40-5.60) 10*6/uL Hgb 17.0 (13.0-17.0) g/dL Hct 46.6 (39.6-50.0) % MCV 91.4 (80.0-97.0) fL MCH 33.3 H (27.0-32.0) pg MCHC 36.5 (32.0-37.0) g/dL Plt Count 253 (140-440) 10*3/uL MPV 10.4 (9.5-12.2) fL Immature Gran % (Auto) 0.4 % Neutrophils % 66.4 % Lymphocytes % 23.2 % Monocytes % 9.2 % Eosinophils % 0.2 % Basophils % 0.6 % Immature Gran # 0.05 H (0.00-0.04) 10*3/uL Neutrophils # 8.86 H (1.80-7.70) 10*3/uL Lymphocytes # 3.09 (0.90-5.00) 10*3/uL Monocytes # 1.23 H (0.20-1.00) 10*3/uL Eosinophils # 0.02 L (0.04-0.35) 10*3/uL Basophils # 0.08 (0.00-0.10) 10*3/uL Sodium 134 L (137-145) mmol/L Potassium 4.8 (3.5-5.1) mmol/L Chloride 103 (98-107) mmol/L Carbon Dioxide 13 L (22-30) mmol/L Anion Gap 18 mmol/L BUN 21 H (9-20) mg/dL Creatinine 1.24 (0.66-1.25) mg/dL Est GFR (CKD-EPI)AfAm 70 (>60 ml/min/1.73 sqM) Est GFR (CKD-EPI)NonAf 60 (>60 ml/min/1.73 sqM) Glucose 148 H (74-99) mg/dL Lactic Ac Sepsis Rflx Plasma Lactic Acid Hernan (0.7-2.0) mmol/L Calcium 9.8 (8.4-10.2) mg/dL Magnesium 1.5 L (1.6-2.3) mg/dL Total Bilirubin 1.9 H (0.2-1.3) mg/dL AST 53 (17-59) U/L ALT 26 (4-49) U/L Alkaline Phosphatase 120 (38-126) U/L Troponin I (0.000-0.034) ng/mL Total Protein 7.6 (6.3-8.2) g/dL Albumin 4.9 (3.5-5.0) g/dL Amylase 50 (30-110) U/L Lipase 145 (23-300) U/L Urine Color Light Yellow Urine Appearance Clear (Clear) Urine pH 5.5 (5.0-8.0) Ur Specific [place] 1.020 (1.001-1.035) Urine Protein Negative (Negative) Urine Glucose (UA) Negative (Negative) Urine Ketones 3+ H (Negative) Urine Blood Large H (Negative) Urine Nitrite Negative (Negative) Urine Bilirubin Negative (Negative) Urine Urobilinogen <2.0 (<2.0) mg/dL Ur Leukocyte Esterase Negative (Negative) Urine RBC 122 H (0-5) /hpf Urine WBC 3 (0-5) /hpf Ur Squamous Epith Cells <1 (0-4) /hpf Fatty Casts 1 (0) /lpf Hyaline Casts 8 H (0-2) /lpf Urine Mucus Occasional H (None) /hpf 03/06/25 03/06/25 03/06/25 Range/Units 20:12 20:21 20:42 WBC (4.50-10.00) 10*3/uL RBC (4.40-5.60) 10*6/uL Hgb (13.0-17.0) g/dL Hct (39.6-50.0) % MCV (80.0-97.0) fL MCH (27.0-32.0) pg MCHC (32.0-37.0) g/dL Plt Count (140-440) 10*3/uL MPV (9.5-12.2) fL Immature Gran % (Auto) % Neutrophils % % Lymphocytes % % Monocytes % % Eosinophils % % Basophils % % Immature Gran # (0.00-0.04) 10*3/uL Neutrophils # (1.80-7.70) 10*3/uL Lymphocytes # (0.90-5.00) 10*3/uL Monocytes # (0.20-1.00) 10*3/uL Eosinophils # (0.04-0.35) 10*3/uL Basophils # (0.00-0.10) 10*3/uL Sodium (137-145) mmol/L Potassium (3.5-5.1) mmol/L Chloride (98-107) mmol/L Carbon Dioxide (22-30) mmol/L Anion Gap mmol/L BUN (9-20) mg/dL Creatinine (0.66-1.25) mg/dL Est GFR (CKD-EPI)AfAm (>60 ml/min/1.73 sqM) Est GFR (CKD-EPI)NonAf (>60 ml/min/1.73 sqM) Glucose (74-99) mg/dL Lactic Ac Sepsis Rflx Y Plasma Lactic Acid Hernan 2.2 H* (0.7-2.0) mmol/L Calcium (8.4-10.2) mg/dL Magnesium (1.6-2.3) mg/dL Total Bilirubin (0.2-1.3) mg/dL AST (17-59) U/L ALT (4-49) U/L Alkaline Phosphatase (38-126) U/L Troponin I 0.025 (0.000-0.034) ng/mL Total Protein (6.3-8.2) g/dL Albumin (3.5-5.0) g/dL Amylase (30-110) U/L Lipase (23-300) U/L Urine Color Urine Appearance (Clear) Urine pH (5.0-8.0) Ur Specific [place] (1.001-1.035) Urine Protein (Negative) Urine Glucose (UA) (Negative) Urine Ketones (Negative) Urine Blood (Negative) Urine Nitrite (Negative) Urine Bilirubin (Negative) Urine Urobilinogen (<2.0) mg/dL Ur Leukocyte Esterase (Negative) Urine RBC (0-5) /hpf Urine WBC (0-5) /hpf Ur Squamous Epith Cells (0-4) /hpf Fatty Casts (0) /lpf Hyaline Casts (0-2) /lpf Urine Mucus (None) /hpf 04/16/25 Range/Units 23:23 WBC (4.50-10.00) 10*3/uL RBC (4.40-5.60) 10*6/uL Hgb (13.0-17.0) g/dL Hct (39.6-50.0) % MCV (80.0-97.0) fL MCH (27.0-32.0) pg MCHC (32.0-37.0) g/dL Plt Count (140-440) 10*3/uL MPV (9.5-12.2) fL Immature Gran % (Auto) % Neutrophils % % Lymphocytes % % Monocytes % % Eosinophils % % Basophils % % Immature Gran # (0.00-0.04) 10*3/uL Neutrophils # (1.80-7.70) 10*3/uL Lymphocytes # (0.90-5.00) 10*3/uL Monocytes # (0.20-1.00) 10*3/uL Eosinophils # (0.04-0.35) 10*3/uL Basophils # (0.00-0.10) 10*3/uL Sodium (137-145) mmol/L Potassium (3.5-5.1) mmol/L Chloride (98-107) mmol/L Carbon Dioxide (22-30) mmol/L Anion Gap mmol/L BUN (9-20) mg/dL Creatinine (0.66-1.25) mg/dL Est GFR (CKD-EPI)AfAm (>60 ml/min/1.73 sqM) Est GFR (CKD-EPI)NonAf (>60 ml/min/1.73 sqM) Glucose (74-99) mg/dL Lactic Ac Sepsis Rflx Plasma Lactic Acid Hernan 1.6 (0.7-2.0) mmol/L Calcium (8.4-10.2) mg/dL Magnesium (1.6-2.3) mg/dL Total Bilirubin (0.2-1.3) mg/dL AST (17-59) U/L ALT (4-49) U/L Alkaline Phosphatase (38-126) U/L Troponin I (0.000-0.034) ng/mL Total Protein (6.3-8.2) g/dL Albumin (3.5-5.0) g/dL Amylase (30-110) U/L Lipase (23-300) U/L Urine Color Urine Appearance (Clear) Urine pH (5.0-8.0) Ur Specific [place] (1.001-1.035) Urine Protein (Negative) Urine Glucose (UA) (Negative) Urine Ketones (Negative) Urine Blood (Negative) Urine Nitrite (Negative) Urine Bilirubin (Negative) Urine Urobilinogen (<2.0) mg/dL Ur Leukocyte Esterase (Negative) Urine RBC (0-5) /hpf Urine WBC (0-5) /hpf Ur Squamous Epith Cells (0-4) /hpf Fatty Casts (0) /lpf Hyaline Casts (0-2) /lpf Urine Mucus (None) /hpf Disposition Is patient prescribed a controlled substance at d/c from ED?: No Time of Disposition: 22:31 Decision Date: 03/06/25 Decision Time: 22:31 <Kd Arroyo - Last Filed: 03/06/25 23:33> <Silvia Mckenzie - Last Filed: 03/07/25 05:02> Clinical Impression: Bilateral nephrolithiasis, Intractable pain, Ureteral stone with hydronephrosis Disposition: ADMITTED IP TO THIS [facility] Condition: Good
[2025-03-06 20:25] LABS: Basophils # (A) 0.08 10*3/uL (0.00-0.10); Basophils % (A) 0.6 %; Eosinophils # (A) 0.02 10*3/uL (0.04-0.35); Eosinophils % (A) 0.2 %; HCT 46.6 % (39.6-50.0); Lymphocytes # (A) 3.09 10*3/uL (0.90-5.00); Lymphocytes % (A) 23.2 %; MCH 33.3 pg (27.0-32.0); MCHC 36.5 g/dL (32.0-37.0); MCV 91.4 fL (80.0-97.0); Mean Platelet Volume 10.4 fL (9.5-12.2); Monocytes # (A) 1.23 10*3/uL (0.20-1.00); Monocytes % (A) 9.2 %; Neutrophils # (A) 8.86 10*3/uL (1.80-7.70); Neutrophils % (A) 66.4 %; Platelet Count 253 10*3/uL (140-440); RDW 12.5 % (11.5-14.5); WBC 13.33 10*3/uL (4.50-10.00)
[2025-03-06] MEDS: SODIUM CHLORIDE 0.9% 1,000 ML IV ONE (20:25)
[2025-03-06] MEDS: PANTOPRAZOLE 40 MG/10 ML VIAL IVP STA (20:26)
[2025-03-06] MEDS: ACETAMINOPHEN TAB 500 MG TAB PO STA (20:26)
[2025-03-06] MEDS: HYDROmorphone 1 MG/ML 1 ML SYRINGE IVP STA ×2 (20:26→22:00)
[2025-03-06] MEDS: FAMOTIDINE 20 MG/2 ML VIAL IV STA (20:26)
[2025-03-06] MEDS: ONDANSETRON 4 MG/2 ML VIAL IVP STA (20:26)
[2025-03-06 20:34] LABS: ALT 26 U/L (4-49); African American GFR (CKD) 70 (>60 ml/min/1.73 sqM); Amylase 50 U/L (30-110); Anion Gap 18 mmol/L; Blood Urea Nitrogen 21 mg/dL (9-20); Calcium 9.8 mg/dL (8.4-10.2); Carbon Dioxide 13 mmol/L (22-30); Chloride 103 mmol/L (98-107); Lipase 145 U/L (23-300); Non-African American GFR(CKD) 60 (>60 ml/min/1.73 sqM); Sodium 134 mmol/L (137-145)
[2025-03-06 20:40] LABS: Albumin 4.9 g/dL (3.5-5.0); Glucose 148 mg/dL (74-99); Potassium 4.8 mmol/L (3.5-5.1); Total Protein 7.6 g/dL (6.3-8.2)
[2025-03-06 20:41] LABS: AST 53 U/L (17-59); Alkaline Phosphatase 120 U/L (38-126); Magnesium 1.5 mg/dL (1.6-2.3); Total Bilirubin 1.9 mg/dL (0.2-1.3)
[2025-03-06 20:49] LABS: Appearance,Urine Clear (Clear); Bilirubin,Urine Negative (Negative); Blood,Urine Large (Negative); Color,Urine Light Yellow; Fatty Casts,Urine 1 /lpf (0); Glucose,Urine (UA) Negative (Negative); Hyaline Casts,Urine 8 /lpf (0-2); Ketones,Urine 3+ (Negative); Leukocyte Esterase,Urine Negative (Negative); Mucus,Urine Occasional /hpf; Nitrite,Urine Negative (Negative); PH, Urine 5.5 (5.0-8.0); Protein,Urine Negative (Negative); RBC,Urine 122 /hpf (0-5); Squamous Epithelial Cell,Urine <1 /hpf (0-4); Urobilinogen,Urine <2.0 mg/dL (<2.0); WBC,Urine 3 /hpf (0-5)
[2025-03-06] MEDS ORDERED: Magnesium Replacement Protocol 1 EACH MISC MISCELLANE PRN (21:28)
[2025-03-06] MEDS: SODIUM CHLORIDE 0.9% 1,000 ML IV STA (21:45)
[2025-03-06] MEDS: MAGNESIUM SULFATE-D5W PMX 1 GM in DEXTROSE/WATER 1 100ML.BAG IVPB SCH (21:46)
--- NOTE | 2025-03-06 21:49 | XR ---
EXAMINATION TYPE: XR chest 2V DATE OF EXAM: 03/06/2025 9:19 PM COMPARISON: None CLINICAL INDICATION: Male, 65 years old with history of Pain; TECHNIQUE: XR chest 2V Frontal and lateral views of the chest. FINDINGS: Lungs/Pleura: There is no evidence of pleural effusion, focal consolidation, or pneumothorax. Pulmonary vascularity: Unremarkable. Heart/mediastinum: Cardiomediastinal silhouette is unremarkable. Musculoskeletal: No acute osseous pathology. IMPRESSION: No acute cardiopulmonary disease/process. [facility], , 03/06/2025 9:47 PM
[2025-03-06] MEDS: METOCLOPRAMIDE 5 MG/ML 2 ML VIAL IVP STA (22:00)
--- NOTE | 2025-03-06 22:10 | CT ---
EXAMINATION TYPE: CT abdomen pelvis w con DATE OF EXAM: 03/06/2025 9:43 PM COMPARISON: None. CLINICAL INDICATION: Male, 65 years old with history of abdominal pain; Patient c/o abd pain, nausea, vomiting, diarrhea x1 week. TECHNIQUE: Axial CT abdomen pelvis w con;Sagittal and coronal reformats were created on a separate w orkstation. Contrast used:100ml mL of Isovue 300 with IV Contrast, (none if empty) Oral contrast used: without Oral Contrast (none if empty) CT DLP: 988.3 mGycm, Automated exposure control for dose reduction was used. FINDINGS: LOWER CHEST: Unremarkable ABDOMEN LIVER: Diffusely hypoattenuating parenchyma. GALLBLADDER AND BILE DUCTS: Unremarkable. PANCREAS: Unremarkable. SPLEEN: Unremarkable. ADRENAL GLANDS: Unremarkable. KIDNEYS AND URETERS: Right mid ureter calculus appearing 7 mm series 201 image 48. There is mild righ t hydronephrosis. Nonobstructing left renal calculus measuring 9 mm and partially obstructing left re nal pelvis calculus 10 mm and in the left renal sinus measuring 9 mm. Renal cortical cysts on the right measuring 11 mm. No follow-up recommended. PELVIS BLADDER: No evidence for wall thickening or mass given limitations of exam. REPRODUCTIVE: Unremarkable. ABDOMEN & PELVIS STOMACH AND BOWEL: No evidence of bowel obstruction. Scattered colonic diverticulosis. PERITONEUM/RETROPERITONEUM: No evidence of pneumoperitoneum or free fluid. VASCULATURE: Mild atherosclerotic calcifications are present throughout the abdominal aorta and its b ranches. No evidence of aortic aneurysm. MUSCULOSKELETAL: No acute osseous abnormalities. Mild disc degeneration changes are present throughou t the thoracolumbar spine. Bilateral hip arthroplasties streaky artifact limiting evaluation. LYMPH NODES: No gross evidence for lymphadenopathy. SOFT TISSUE/ABDOMINAL WALL: Fat-containing inguinal hernia. IMPRESSION: 1. Right mid ureter renal calculus with minimal right hydronephrosis. Nonobstructing left renal calc jasmina and partially obstructing left renal pelvis calculus. No significant left hydronephrosis. 2. Colonic diverticulosis. 3. Bilateral hip arthroplasties are intact. 4. Hepatic steatosis. [facility], , 03/06/2025 10:08 PM
[2025-03-06] MEDS ORDERED: HYDROmorphone 1 MG/ML 1 ML SYRINGE IVP PRN (22:51)
[2025-03-06] MEDS ORDERED: NALOXONE 0.4 MG/ML 1 ML VIAL IV PRN (22:51)
[2025-03-06] MEDS ORDERED: ACETAMINOPHEN TAB 325 MG TAB PO PRN (22:51)
[2025-03-06] MEDS: SODIUM CHLORIDE 0.9% 1,000 ML IV SCH (22:56)
[2025-03-06] MEDS: TAMSULOSIN 0.4 MG CAP.ER.24H PO STA (23:20)
[2025-03-07] MEDS: HYDROmorphone 2 MG/ML 1 ML SYRINGE IVP PRN (01:32)
[2025-03-07] MEDS: ONDANSETRON 4 MG/2 ML VIAL IVP PRN ×2 (02:13→17:47)
[2025-03-07 06:41] LABS: Glucose,Whole Blood 143 mg/dL (70-110)
[2025-03-07] MEDS: IV FLUID CONTINUATION 1,000 ML IV ONE (10:58)
[2025-03-07 11:03] LABS: Glucose,Whole Blood 179 mg/dL (70-110)
[2025-03-07] MEDS ORDERED: DEXTROSE 50% SYRINGE 50 ML IVP PRN ×2 (11:06)
--- NOTE | 2025-03-07 11:24 | P.GSCN ---
History of Present Illness Consult date: 03/07/25 Reason for Consult: Bilateral ureteral stones History of present illness: This is a 65-year-old male presented to the hospital with diffuse abdominal pain, and bilateral flank pain. Indicates pain is associated with nausea and vomiting, denies any dysuria or gross hematuria, denies any fevers or chills. No previous history of kidney stones. No known family history of stones. Underwent a CT abdomen and pelvis that showed evidence of bilateral ureteral stones each measuring approximately 7 mm. He is still able to void, creatinine is 1.2 Review of Systems - Constitutional Denies fever, Denies weight loss - Cardiovascular Denies chest pain, Denies shortness of breath - Gastrointestinal Reports abdominal pain, Reports nausea, Reports vomiting - Genitourinary Reports flank pain, Denies dysuria, Denies hematuria - Neurological Denies headaches, Denies syncope Past Medical History Past Medical History: Diabetes Mellitus, Hyperlipidemia, Hypertension, Osteoarthritis (OA) Additional Past Medical History / Comment(s): glaucoma History of Any Multi-Drug Resistant Organisms: None Reported Past Surgical History: Hernia Repair, Orthopedic Surgery Additional Past Surgical History / Comment(s): bilat knee scope, bilateral hip replacement, hernia repair two years ago. colonoscopy Past Anesthesia/Blood Transfusion Reactions: No Reported Reaction Past Psychological History: No Psychological Hx Reported Additional Psychological History / Comment(s): CLAUSTROPHOBIA Smoking Status: Never smoker Past Alcohol Use History: None Reported Past Drug Use History: None Reported - Past Family History Mother Family Medical History: Cancer Father Family Medical History: Cancer Additional Family Medical History / Comment(s): glaucoma Medications and Allergies Home Medications Medication Instructions Recorded Confirmed Type metFORMIN HCL [Glucophage] 500 mg PO DAILY 08/23/17 03/07/25 History Insulin Glargine,Hum.rec.anlog 10 units SQ HS 01/18/23 03/07/25 History [Lantus Solostar Pen] Atorvastatin [Lipitor] 10 mg PO DAILY 03/07/25 03/07/25 History Insulin Lispro [humaLOG Kwikpen] See Protocol SQ AC-TID 03/07/25 03/07/25 History lisinopriL [Zestril] 10 mg PO DAILY 03/07/25 03/07/25 History Allergies Allergy/AdvReac Type Severity Reaction Status Date / Time No Known Allergies Allergy Verified 03/07/25 07:37 Surgical - Exam Vital Signs Temp Pulse Resp BP Pulse Ox 97.6 F 90 18 134/68 98 03/06/25 19:22 03/06/25 19:22 03/06/25 19:22 03/06/25 19:22 03/06/25 19:22 - General no distress, moderate pain - Eyes normal ocular movement, no pale - ENT normal nares, normal mucosa - Respiratory normal expansion, normal respiratory effort - Abdomen Abdomen: soft, tender (Diffuse abdominal), no distended - Psychiatric oriented to time, oriented to person, oriented to place Results - Labs 03/06/25 20:12 03/06/25 20:12 Abnormal Lab Results - Last 24 Hours (Table) 03/06/25 03/06/25 03/06/25 Range/Units 19:38 20:12 20:12 WBC 13.33 H (4.50-10.00) 10*3/uL MCH 33.3 H (27.0-32.0) pg Immature Gran # 0.05 H (0.00-0.04) 10*3/uL Neutrophils # 8.86 H (1.80-7.70) 10*3/uL Monocytes # 1.23 H (0.20-1.00) 10*3/uL Eosinophils # 0.02 L (0.04-0.35) 10*3/uL Sodium 134 L (137-145) mmol/L Carbon Dioxide 13 L (22-30) mmol/L BUN 21 H (9-20) mg/dL Glucose 148 H (74-99) mg/dL POC Glucose (mg/dL) (70-110) mg/dL Plasma Lactic Acid Hernan (0.7-2.0) mmol/L Magnesium 1.5 L (1.6-2.3) mg/dL Total Bilirubin 1.9 H (0.2-1.3) mg/dL Urine Ketones 3+ H (Negative) Urine Blood Large H (Negative) Urine RBC 122 H (0-5) /hpf Hyaline Casts 8 H (0-2) /lpf Urine Mucus Occasional H (None) /hpf 03/06/25 03/07/25 03/07/25 Range/Units 20:12 06:39 11:02 WBC (4.50-10.00) 10*3/uL MCH (27.0-32.0) pg Immature Gran # (0.00-0.04) 10*3/uL Neutrophils # (1.80-7.70) 10*3/uL Monocytes # (0.20-1.00) 10*3/uL Eosinophils # (0.04-0.35) 10*3/uL Sodium (137-145) mmol/L Carbon Dioxide (22-30) mmol/L BUN (9-20) mg/dL Glucose (74-99) mg/dL POC Glucose (mg/dL) 143 H 179 H (70-110) mg/dL Plasma Lactic Acid Hernan 2.2 H* (0.7-2.0) mmol/L Magnesium (1.6-2.3) mg/dL Total Bilirubin (0.2-1.3) mg/dL Urine Ketones (Negative) Urine Blood (Negative) Urine RBC (0-5) /hpf Hyaline Casts (0-2) /lpf Urine Mucus (None) /hpf Diabetes panel 03/06/25 Range/Units 20:12 Sodium 134 L (137-145) mmol/L Potassium 4.8 (3.5-5.1) mmol/L Chloride 103 (98-107) mmol/L Carbon Dioxide 13 L (22-30) mmol/L BUN 21 H (9-20) mg/dL Creatinine 1.24 (0.66-1.25) mg/dL Glucose 148 H (74-99) mg/dL Calcium 9.8 (8.4-10.2) mg/dL AST 53 (17-59) U/L ALT 26 (4-49) U/L Alkaline Phosphatase 120 (38-126) U/L Total Protein 7.6 (6.3-8.2) g/dL Albumin 4.9 (3.5-5.0) g/dL Calcium panel 03/06/25 Range/Units 20:12 Calcium 9.8 (8.4-10.2) mg/dL Albumin 4.9 (3.5-5.0) g/dL Pituitary panel 03/06/25 Range/Units 20:12 Sodium 134 L (137-145) mmol/L Potassium 4.8 (3.5-5.1) mmol/L Chloride 103 (98-107) mmol/L Carbon Dioxide 13 L (22-30) mmol/L BUN 21 H (9-20) mg/dL Creatinine 1.24 (0.66-1.25) mg/dL Glucose 148 H (74-99) mg/dL Calcium 9.8 (8.4-10.2) mg/dL Adrenal panel 03/06/25 Range/Units 20:12 Sodium 134 L (137-145) mmol/L Potassium 4.8 (3.5-5.1) mmol/L Chloride 103 (98-107) mmol/L Carbon Dioxide 13 L (22-30) mmol/L BUN 21 H (9-20) mg/dL Creatinine 1.24 (0.66-1.25) mg/dL Glucose 148 H (74-99) mg/dL Calcium 9.8 (8.4-10.2) mg/dL Total Bilirubin 1.9 H (0.2-1.3) mg/dL AST 53 (17-59) U/L ALT 26 (4-49) U/L Alkaline Phosphatase 120 (38-126) U/L Total Protein 7.6 (6.3-8.2) g/dL Albumin 4.9 (3.5-5.0) g/dL Assessment and Plan Assessment: 65-year-old male with history of bilateral ureteral stones, discussed with him given the evidence of bilateral ureteral stones I do recommend proceeding further intervention. Discussed with proceed with bilateral stent insertion to allow for collecting system decompression. Risk-benefit and rationale of surgery was discussed in details. Discussed he will eventually require bilateral ureteroscopy with holmium laser and stent removal as an outpatient
--- NOTE | 2025-03-07 11:34 | P.HPIM ---
History of Present Illness H&P Date: 03/07/25 Chief Complaint: Bilateral flank pain, diffuse abdominal pain, N/V/D History and Physical and Discharge Summary: This is a 65-year-old gentleman with past medical history significant for diabetes mellitus, hyperlipidemia, hypertension, osteoarthritis, glaucoma, hernia repair and multiple other medical issues presented to the ER with diffuse abdominal pain, bilateral flank pain accompanied by nausea vomiting and diarrhea x 4 days. Denies urinary dysuria hematuria. Denies fever or chills. Afebrile, WBC13.33, hemoglobin 17, platelets 253. Sodium 134, potassium 4.8, bicarb 13, BUN 21, creatinine 1.24, glucose 148, 179. Magnesium 1.5, supplemented. T. bili 1.9, AST 53, ALT 26, alk phos 120. Troponins negative x 1. UA reported 3+ ketones, large blood, negative nitrates, negative leukocytes, 122 RBCs 8 hyaline casts. Chest x-ray nonacute. EKG reporting sinus rhythm. Denies chest pain, palpitations or shortness of breath. Maintaining O2 sats in the high 90s on room air. ER discussed case with Dr. Jenkins with cystoscopy/bilateral stents scheduled for this morning. NPO, IV fluid hydration, pain management, anti emetics-Zofran, tamsulosin. Pepcid in place for GI prophylaxis. Review of Systems ROS Statement: Those systems with pertinent positive or pertinent negative responses have been documented in the HPI. ROS Other: All systems not noted in ROS Statement are negative. Past Medical History Past Medical History: Diabetes Mellitus, Hyperlipidemia, Hypertension, Osteoarthritis (OA) Additional Past Medical History / Comment(s): glaucoma History of Any Multi-Drug Resistant Organisms: None Reported Past Surgical History: Hernia Repair, Orthopedic Surgery Additional Past Surgical History / Comment(s): bilat knee scope, bilateral hip replacement, hernia repair two years ago. colonoscopy Past Anesthesia/Blood Transfusion Reactions: No Reported Reaction Past Psychological History: No Psychological Hx Reported Additional Psychological History / Comment(s): CLAUSTROPHOBIA Smoking Status: Never smoker Past Alcohol Use History: None Reported Past Drug Use History: None Reported - Past Family History Mother Family Medical History: Cancer Father Family Medical History: Cancer Additional Family Medical History / Comment(s): glaucoma Medications and Allergies Home Medications Medication Instructions Recorded Confirmed Type metFORMIN HCL [Glucophage] 500 mg PO DAILY 08/23/17 03/07/25 History Insulin Glargine,Hum.rec.anlog 10 units SQ HS 01/18/23 03/07/25 History [Lantus Solostar Pen] Amoxicillin 875 mg PO Q12HR #14 tablet 03/07/25 Rx Atorvastatin [Lipitor] 10 mg PO DAILY 03/07/25 03/07/25 History Insulin Lispro [humaLOG Kwikpen] See Protocol SQ AC-TID 03/07/25 03/07/25 History lisinopriL [Zestril] 10 mg PO DAILY 03/07/25 03/07/25 History Allergies Allergy/AdvReac Type Severity Reaction Status Date / Time No Known Allergies Allergy Verified 03/07/25 07:37 Physical Exam Vitals: Vital Signs Temp Pulse Pulse Resp BP BP Pulse Ox 03/07/25 08:44 81 18 03/07/25 07:55 97.9 F 85 18 124/65 98 03/07/25 06:40 98.1 F 82 16 150/70 99 03/07/25 01:19 98.1 F 77 16 121/73 99 03/06/25 23:26 84 16 108/56 97 03/06/25 21:47 81 16 142/98 98 03/06/25 21:24 72 16 136/70 97 03/06/25 19:22 97.6 F 90 18 134/68 98 Intake and Output 03/06/25 03/07/25 03/07/25 22:59 06:59 14:59 Other: Voiding Method Toilet # Voids 2 3 Weight 79.379 kg 79.379 kg GENERAL: Pleasant 61-year-old male, alert and oriented X3. No acute distress. HEENT: Normocephalic, atraumatic, pupils round and equal, conjunctiva normal, no scleral icterus. Neck supple, no JVD. RESPIRATORY: Unlabored, equal air entry lungs clear bilaterally. No use of accessory muscles. Patient maintaining oxygen saturation greater than 92%. CARDIOVASCULAR: S1 and S2 noted. No murmurs auscultated. EXTREMITIES: No edema noted. Palpable pedal pulses +2. ABDOMEN: Soft, no distention, diffuse tenderness, positive bowel sounds. NEURO: Cranial nerves II through XII grossly intact SKIN: Warm and dry, no rash noted Results CBC & Chem 7: 03/06/25 20:12 03/06/25 20:12 Labs: Abnormal Lab Results - Last 24 Hours (Table) 03/06/25 03/06/25 03/06/25 Range/Units 19:38 20:12 20:12 WBC 13.33 H (4.50-10.00) 10*3/uL MCH 33.3 H (27.0-32.0) pg Immature Gran # 0.05 H (0.00-0.04) 10*3/uL Neutrophils # 8.86 H (1.80-7.70) 10*3/uL Monocytes # 1.23 H (0.20-1.00) 10*3/uL Eosinophils # 0.02 L (0.04-0.35) 10*3/uL Sodium 134 L (137-145) mmol/L Carbon Dioxide 13 L (22-30) mmol/L BUN 21 H (9-20) mg/dL Glucose 148 H (74-99) mg/dL POC Glucose (mg/dL) (70-110) mg/dL Plasma Lactic Acid Hernan (0.7-2.0) mmol/L Magnesium 1.5 L (1.6-2.3) mg/dL Total Bilirubin 1.9 H (0.2-1.3) mg/dL Urine Ketones 3+ H (Negative) Urine Blood Large H (Negative) Urine RBC 122 H (0-5) /hpf Hyaline Casts 8 H (0-2) /lpf Urine Mucus Occasional H (None) /hpf 03/06/25 03/07/25 Range/Units 20:12 06:39 WBC (4.50-10.00) 10*3/uL MCH (27.0-32.0) pg Immature Gran # (0.00-0.04) 10*3/uL Neutrophils # (1.80-7.70) 10*3/uL Monocytes # (0.20-1.00) 10*3/uL Eosinophils # (0.04-0.35) 10*3/uL Sodium (137-145) mmol/L Carbon Dioxide (22-30) mmol/L BUN (9-20) mg/dL Glucose (74-99) mg/dL POC Glucose (mg/dL) 143 H (70-110) mg/dL Plasma Lactic Acid Hernan 2.2 H* (0.7-2.0) mmol/L Magnesium (1.6-2.3) mg/dL Total Bilirubin (0.2-1.3) mg/dL Urine Ketones (Negative) Urine Blood (Negative) Urine RBC (0-5) /hpf Hyaline Casts (0-2) /lpf Urine Mucus (None) /hpf Thrombosis Risk Factor Assmnt - Choose All That Apply Any of the Below Risk Factors Present?: Yes Each Factor Represents 1 point: Obesity (BMI >25) Other Risk Factors: Yes Each Risk Factor Represents 2 Points: Age 61-74 years Thrombosis Risk Factor Assessment Total Risk Factor Score: 3 Thrombosis Risk Factor Assessment Level: Moderate Risk Assessment and Plan Assessment: -Acute diffuse intractable abdominal pain x 4 days, accompanied by nausea, vomiting, diarrhea. CT of abdomen pelvis reporting bilateral nephrolithiasis; right mid ureter calculus measuring 7 mm with mild right hydronephrosis. Nonobstructing left renal calculus measuring 9 mm and partially obstructing left renal pelvis calculus 10 mm and in the left renal sinus measuring 9 mm. Renal cortical cyst on the right measuring 11 mm. Status post cystoscopy with bilateral stent insertion. -Acute renal injury secondary to the above -Leukocytosis, secondary to #1 - Hepatic steatosis -Colonic diverticulosis - Hernia repair -Claustrophobia -Osteoarthritis -Diabetes mellitus, type II -Essential hypertension -hyperlipidemia Plan: Continue on current medication regime ,monitoring and symptomatic treatment. Patient just returning back from his cystoscopy with bilateral stent insertion. Tolerated procedure well. Currently denies pain. Denies chest pain, palpitations or shortness of breath. Patient has been cleared by urology for discharge. Patient to follow-up with Dr. Jenkins in 1 week. Patient will be discharged home today in a stable condition with guarded prognosis. Discharge Medication List metFORMIN HCL [Glucophage] 500 mg PO DAILY 08/23/17 [History] Insulin Glargine,Hum.rec.anlog [Lantus Solostar Pen] 10 units SQ HS 01/18/23 [History] Amoxicillin 875 mg PO Q12HR #14 tablet 03/07/25 [Rx] Atorvastatin [Lipitor] 10 mg PO DAILY 03/07/25 [History] Insulin Lispro [humaLOG Kwikpen] See Protocol SQ AC-TID 03/07/25 [History] lisinopriL [Zestril] 10 mg PO DAILY 03/07/25 [History] The impression and plan of care has been dictated as directed. : I performed a history and examination of this patient, discussed the same with the dictator. I agree with the dictator's note ,documented as a scribe. Any additional findings or plans will be noted.
[2025-03-07] MEDS ORDERED: fentaNYL (PF) 50 MCG/ML 2 ML AMP ONE (11:55)
[2025-03-07] MEDS ORDERED: PROPOFOL 10 MG/ML 20 ML VIAL IV ONE (11:55)
[2025-03-07] MEDS ORDERED: MIDAZOLAM 2 MG/2 ML VIAL ONE (11:55)
[2025-03-07] MEDS ORDERED: LIDOCAINE 1% INJ 10MG/ML (20 ML MDV) ONE (11:55)
[2025-03-07] MEDS ORDERED: PHENYLEPHRINE 10 MG/ML VIAL ONE (11:55)
[2025-03-07] MEDS: SODIUM CHLORIDE 0.9% 50 ML with ceFAZolin 2,000 MG IV ONE (12:00)
[2025-03-07] MEDS: LACTATED RINGERS 1,000 ML IV ONE (12:17)
--- NOTE | 2025-03-07 12:39 | P.OP ---
Date of Procedure: 03/07/25 Preoperative Diagnosis: bilateral ureteral stone Postoperative Diagnosis: Same Procedure(s) Performed: Cystoscopy with bilateral stent insertion Implants: 6 [place] by 26 cm stents in the bilateral ureters Anesthesia: SIMONA Surgeon: Ike Jenkins Estimated Blood Loss (ml): 5 Pathology: none sent Condition: stable Disposition: PACU Indications for Procedure: This is a 65-year-old male with history of bilateral obstructive ureteral stones. Discussed with him given this finding I do recommend proceeding with bilateral stent insertion. He is aware of the risk which include but not limited to bleeding, infection, injury to the ureter. Discussed he will eventually require bilateral ureteroscopy with holmium laser as an outpatient Description of Procedure: Patient brought to the operating room, general anesthesia was induced. He was prepped and draped in sterile fashion placed in dorsolithotomy position. Cystoscopy fitted through the 21 [place] sheath was inserted per urethra, cystoscopy was performed showed no abnormality within the bladder. Patient did have a slight enlargement of the prostate with an enlarged median lobe with a slight intravesical extension. The left ureter orifice was identified intubated with a sensor wire, the wire was advanced under fluoroscopy into the kidney. Next a ureteral stent was passed over the wire, the proximal curl was visualized on fluoroscopy and the distal curl was visualized using the cystoscope. Of note the stone was radiopaque and was at the level of the proximal ureter. Attention was then carried to the right side. The sensor wire was advanced up the right u reteral orifice and under fluoroscopy into the kidney past the stone, the stone was also radiopaque on the right side and was along the proximal ureter. Next a ureteral stent was passed over the wire, the proximal curl was realized on fluoroscopy and the distal curl was visualized using the cystoscope. The bladder was emptied at the end of the case. Patient tolerated procedure well was taken to recovery in stable condition. From urology standpoint he is stable for discharge
--- NOTE | 2025-03-07 12:48 | FL ---
EXAMINATION TYPE: FL guidance operating room Intraoperative/procedural fluoroscopic services were pro vided. CLINICAL INDICATION:Male, 65 years old with history of Bilateral Stent Insertion; , [facility] FINDINGS: Multiple fluoroscopic images demonstrate bilateral ureteral stent insertion. No radiographic evidence for complication. Total fluoroscopy time is 3.1 seconds. DAP: 0.1157 Gycm2 uGym2 mGym2 Please see the operative/procedural note for further details. [facility], , 03/07/2025 12:46 PM
[2025-03-07 12:53] LABS: Glucose,Whole Blood 156 mg/dL (70-110)
[2025-03-07] MEDS: INSULIN LISPRO (HumaLOG) 100 UNIT/ML 10 mL VL SQ SCH (13:44)
[2025-03-07] MEDS: HYDROcodone/APAP 5-325MG 1 EACH TAB PO PRN (16:00)
[2025-03-07] MEDS: SODIUM CHLORIDE 0.9% 500 ML 250 ML IV ONE (16:30)
[2025-03-07 17:10] LABS: Glucose,Whole Blood 175 mg/dL (70-110)
[2025-03-07 20:10] LABS: Glucose,Whole Blood 158 mg/dL (70-110)
[2025-03-07 23:49] LABS: Glucose,Whole Blood 114 mg/dL (70-110)
[2025-03-08] MEDS: HYDROcodone/APAP 5-325MG 1 EACH TAB PO PRN (05:18)
[2025-03-08 05:52] LABS: Glucose,Whole Blood 95 mg/dL (70-110)
[2025-03-08 07:26] VITALS: BP 125/69; PULSE 64; RESP 15; TEMP 98.3
--- NOTE | 2025-03-08 08:03 | P.DS ---
Providers Date of admission: 03/07/25 13:47 Expected date of discharge: 03/08/25 Attending physician: Dixon Lee Consults: 03/06/25 22:51 Consult Physician Stat Consulting Provider: Ike Jenkins Consult Reason/Comments: Bilateral nephrolithiasis with intractable pain Do you want consulting provider notified?: Already Contacted Primary care physician: Dixon Lee Patient Condition at Discharge: Good Plan - Discharge Summary New Discharge Prescriptions: New Amoxicillin 875 mg PO Q12HR #14 tablet Continue metFORMIN HCL [Glucophage] 500 mg PO DAILY Insulin Glargine,Hum.rec.anlog [Lantus Solostar Pen] 10 units SQ HS Atorvastatin [Lipitor] 10 mg PO DAILY Insulin Lispro [humaLOG Kwikpen] See Protocol SQ AC-TID lisinopriL [Zestril] 10 mg PO DAILY Discharge Medication List metFORMIN HCL [Glucophage] 500 mg PO DAILY 08/23/17 [History] Insulin Glargine,Hum.rec.anlog [Lantus Solostar Pen] 10 units SQ HS 01/18/23 [History] Amoxicillin 875 mg PO Q12HR #14 tablet 03/07/25 [Rx] Atorvastatin [Lipitor] 10 mg PO DAILY 03/07/25 [History] Insulin Lispro [humaLOG Kwikpen] See Protocol SQ AC-TID 03/07/25 [History] lisinopriL [Zestril] 10 mg PO DAILY 03/07/25 [History] Follow up Appointment(s)/Referral(s): Dixon Lee Jr, DO [Primary Care Provider] - 03/12/25 2:00 pm Ike Jenkins MD [STAFF PHYSICIAN] - 1 Week (The office will call you with an appointment time and date.) Ambulatory/Diagnostic Orders: Basic Metabolic Panel [LAB.AMB] Time Frame: 3 Days, Location: None Selected Patient Instructions/Handouts: *Surgery [facility] - Cystoscopy Discharge Instructions, Kidney Stones (DC) Activity/Diet/Wound Care/Special Instructions: Pain management: Discharge Disposition: HOME SELF-CARE
[2025-03-08 08:26] LABS: BUN/Creat Ratio 16.11 Ratio (12.00-20.00); Blood Urea Nitrogen 14.5 mg/dL (9.0-27.0); Calcium 8.7 mg/dL (8.7-10.3); Carbon Dioxide 20.1 mmol/L (21.6-31.8); Chloride 105 mmol/L (96-109); Glucose 103 mg/dL (70-110); Potassium 4.3 mmol/L (3.5-5.5); Sodium 137 mmol/L (135-145)
[2025-03-08 08:45] LABS: Basophils # (A) 0.01 X 10*3/uL (0.00-0.10); Basophils % (A) 0.1 %; Eosinophils # (A) 0 X 10*3/uL (0.04-0.35); Eosinophils % (A) 0 %; HCT 42.8 % (39.6-50.0); HGB 14.4 g/dL (13.0-17.0); Lymphocytes # (A) 1.89 X 10*3/uL (0.90-5.00); Lymphocytes % (A) 16.2 %; MCH 31.9 pg (27.0-32.0); MCHC 33.6 g/dL (32.0-37.0); MCV 94.7 FL (80.0-97.0); Mean Platelet Volume 10.5 FL (9.5-12.2); Monocytes # (A) 1.35 X 10*3/uL (0.20-1.00); Monocytes % (A) 11.6 %; NRBC Per 100 WBC 0 X 10*3/uL (0.00-0.01); Neutrophils # (A) 8.34 X 10*3/uL (1.80-7.70); Neutrophils % (A) 71.6 %; Platelet Count 231 X 10*3/uL (140-440); RBC 4.52 X 10*6/uL (4.40-5.60); RDW 13.2 % (11.5-14.5); WBC 11.65 X 10*3/uL (4.50-10.00)
--- NOTE | 2025-03-08 21:52 | P.PN ---
Subjective Underwent bilateral stent insertion yesterday. Denies any flank pain, still having some nausea. Gross hematuria is resolving. Denies any dysuria. Objective - Vital Signs Vital signs: Vital Signs Temp 98.3 F 03/08/25 06:58 Pulse 64 03/08/25 08:00 Resp 15 03/08/25 08:00 BP 125/69 03/08/25 06:58 Pulse Ox 96 03/08/25 06:58 FiO2 Intake & Output 03/08/25 03/08/25 03/09/25 06:59 18:59 06:59 Intake Total 780 Balance 780 Intake: Oral 780 Other: Voiding Method Toilet Toilet Urinal Urinal # Voids 3 2 - Constitutional General appearance: Present: no acute distress - Labs CBC & Chem 7: 03/08/25 04:55 03/08/25 04:55 Labs: Abnormal Lab Results - Last 24 Hours (Table) 03/07/25 03/08/25 03/08/25 Range/Units 23:48 04:55 04:55 WBC 11.65 H (4.50-10.00) X 10*3/uL Immature Gran # 0.06 H (0.00-0.04) X 10*3/uL Neutrophils # 8.34 H (1.80-7.70) X 10*3/uL Monocytes # 1.35 H (0.20-1.00) X 10*3/uL Eosinophils # 0 L (0.04-0.35) X 10*3/uL Carbon Dioxide (21.6-31.8) mmol/L POC Glucose (mg/dL) 114 H (70-110) mg/dL Hemoglobin A1c 6.5 H (<=6.0) % 03/08/25 Range/Units 04:55 WBC (4.50-10.00) X 10*3/uL Immature Gran # (0.00-0.04) X 10*3/uL Neutrophils # (1.80-7.70) X 10*3/uL Monocytes # (0.20-1.00) X 10*3/uL Eosinophils # (0.04-0.35) X 10*3/uL Carbon Dioxide 20.1 L (21.6-31.8) mmol/L POC Glucose (mg/dL) (70-110) mg/dL Hemoglobin A1c (<=6.0) % Assessment and Plan Assessment: 65-year-old male status post bilateral stent insertion for bilateral obstructing ureteral stones on March 07. Denies any flank pain but is still having some nausea. Plan to discharge home with Zoan. -He will be set up for an outpatient bilateral ureteroscopy with holmium laser and stent removal
== END 2025-03-08 09:24 | disposition home or self-care (01) | DRG 661 ==
LOC: EC 19:13 → 5NMEDONC 03-07 → OBSVTOIN 03-07 13:47
PROVIDERS: ADMIT Family Medicine; ATTEND Family Medicine
PROC: 0T788DZ Dilation of Bilateral Ureters with Intraluminal Device, Via Natural or Artificial Opening Endoscopic (ICD-10-PCS; principal; 2025-03-07 07:30)
DX: N13.2 Hydronephrosis with renal and ureteral calculous obstruction (principal); N17.9 Acute kidney failure, unspecified; D72.829 Elevated white blood cell count, unspecified; E11.9 Type 2 diabetes mellitus without complications; E78.5 Hyperlipidemia, unspecified; I10 Essential (primary) hypertension; K76.0 Fatty (change of) liver, not elsewhere classified; Z79.4 Long term (current) use of insulin; R31.0 Gross hematuria; N28.1 Cyst of kidney, acquired; Z79.84 Long term (current) use of oral hypoglycemic drugs; Z79.899 Other long term (current) drug therapy; Z87.442 Personal history of urinary calculi; F40.240 Claustrophobia; K57.30 Diverticulosis of large intestine without perforation or abscess without bleeding; M19.90 Unspecified osteoarthritis, unspecified site; Z96.643 Presence of artificial hip joint, bilateral
CPT/HCPCS: 36415; 71046; 74177; 80048; 80053; 81001; 82150; 83036; 83605; 83690; 83735; 84484; 85025; 93005; 96361; 96365; 96375; 96376; 99285

== ENCOUNTER 2025-03-14 14:55 | Emergency (ER) | payer MEDICARE ==
[2025-03-14 15:20] VITALS: RESP 18
--- NOTE | 2025-03-14 15:58 | ED ---
Male Urogenital HPI - General Source: patient Mode of arrival: ambulatory Limitations: no limitations <Zara Toussaint - Last Filed: 03/14/25 19:11> <Reynold Mixon - Last Filed: 03/15/25 15:25> - General Chief complaint: Urogenital Stated complaint: Abd pain Time Seen by Provider: 03/14/25 15:29 - History of Present Illness Initial comments: 65-year-old male presented to the hospital with diffuse abdominal pain. Patient reports he is also nauseous. Reports he has had some blood in his urine. Patient reports he had cystoscopy with bilateral stent insertion with Dr. Jenkins on 03/07. States today his pain got worse and he had sediment and blood in his urine. Reports he has not urinated in 3 hours. Denying any fevers, chills, chest pain, dyspnea, constipation, hematemesis. (Zara Toussaint) - Related Data Home Medications Medication Instructions Recorded Confirmed metFORMIN HCL [Glucophage] 500 mg PO DAILY 08/23/17 03/15/25 Insulin Glargine,Hum.rec.anlog 10 units SQ HS 01/18/23 03/15/25 [Lantus Solostar Pen] Atorvastatin [Lipitor] 10 mg PO DAILY 03/07/25 03/15/25 Insulin Lispro [humaLOG Kwikpen] See Protocol SQ AC-TID 03/07/25 03/15/25 lisinopriL [Zestril] 10 mg PO DAILY 03/07/25 03/15/25 Hydrocodone/Acetaminophen 1 tab PO DIRECTED PRN 03/15/25 03/15/25 [Hydrocodone/Acetaminophen 10-300 mg] Ondansetron Odt [Zofran ODT] 8 mg PO DIRECTED PRN 03/15/25 03/15/25 Allergies Allergy/AdvReac Type Severity Reaction Status Date / Time No Known Allergies Allergy Verified 03/15/25 10:51 Review of Systems ROS Other: All systems not noted in ROS Statement are negative. Constitutional: Denies: fever, chills Respiratory: Denies: cough, dyspnea Cardiovascular: Denies: chest pain, palpitations Gastrointestinal: Reports: abdominal pain, nausea. Denies: vomiting Genitourinary: Reports: hematuria. Denies: urgency, dysuria Musculoskeletal: Denies: back pain Skin: Denies: rash, lesions Neurological: Denies: headache, weakness <Zara Toussaint - Last Filed: 03/14/25 19:11> ROS Other: All systems not noted in ROS Statement are negative. <Reynold Mixon - Last Filed: 03/15/25 15:25> ROS Statement: Those systems with pertinent positive or pertinent negative responses have been documented in the HPI. Past Medical History Past Medical History: Diabetes Mellitus, Hyperlipidemia, Hypertension, Osteoarthritis (OA) Additional Past Medical History / Comment(s): glaucoma History of Any Multi-Drug Resistant Organisms: None Reported Past Surgical History: Hernia Repair, Orthopedic Surgery Additional Past Surgical History / Comment(s): bilat knee scope, bilateral hip replacement, hernia repair two years ago. colonoscopy Past Anesthesia/Blood Transfusion Reactions: No Reported Reaction Past Psychological History: No Psychological Hx Reported Smoking Status: Never smoker Past Alcohol Use History: None Reported Past Drug Use History: None Reported - Past Family History Mother Family Medical History: Cancer Father Family Medical History: Cancer Additional Family Medical History / Comment(s): glaucoma <Zara Toussaint - Last Filed: 03/14/25 19:11> General Exam Limitations: no limitations General appearance: alert, in distress Respiratory exam: Present: normal lung sounds bilaterally. Absent: respiratory distress, wheezes Cardiovascular Exam: Present: regular rate, normal rhythm GI/Abdominal exam: Present: soft, tenderness (Diffuse tenderness of lower abdomen) Neurological exam: Present: alert, oriented X3 Psychiatric exam: Present: normal affect, normal mood Skin exam: Present: warm, dry, intact <Zara Toussaint - Last Filed: 03/14/25 19:11> Course Vital Signs 03/14/25 03/14/25 03/14/25 15:17 18:07 19:13 Temperature 97.6 F 97.6 F 98.8 F Pulse Rate 78 88 72 Respiratory 18 18 18 Rate Blood Pressure 136/65 133/82 132/78 O2 Sat by Pulse 99 99 99 Oximetry Medical Decision Making - Lab Data Result diagrams: 03/14/25 16:26 03/14/25 16:26 <Zara Toussaint - Last Filed: 03/14/25 19:11> - Lab Data Result diagrams: 03/14/25 16:26 03/14/25 16:26 <Reynold Mixon D - Last Filed: 03/15/25 15:25> - Medical Decision Making Was pt. sent in by a medical professional or institution (GARETT Baker, VOCATIONAL REHABILITATION CONSULTANT, urgent care, hospital, or [facility]...) When possible be specific @ -No Did you speak to anyone other than the patient for history (EMS, parent, family, police, friend...)? What history was obtained from this source @ -No Did you review nursing and triage notes (agree or disagree)? Why? @ -I reviewed and agree with nursing and triage notes Were old charts reviewed (outside hosp., previous admission, EMS record, old EKG, old radiological studies, urgent care reports/EKG's, [facility] records)? Report findings @ -No old charts were reviewed Differential Diagnosis? @ -Differential Abdominal Pain Men: Appendicitis, cholecystitis, diverticulosis, ischemic bowel, pancreatitis, hepatitis, UTI, gastroenteritis, AAA, incarcerated hernia, bowel obstruction, constipation, inflammatory bowel, hepatitis, peptic ulcer disease, splenic infarction, perforated viscus, testicular torsion, this is not meant to be an all-inclusive list EKG interpreted by me (3pts min.). @ -As above X-rays interpreted by me (1pt min.). @ -None done CT interpreted by me (1pt min.). @ -CT abdomen pelvis as interpreted by me showed patent bilateral ureteral stents and a nonobstructive stone in the left kidney U/S interpreted by me (1pt. min.). @ -None done What testing was considered but not performed or refused? (CT, X-rays, U/S, labs)? Why? @ -None What meds were considered but not given or refused? Why? @ -None Did you discuss the management of the patient with other professionals (professionals i.e. GARETT Baker, VOCATIONAL REHABILITATION CONSULTANT, lab, RT, psych nurse, social secretary, circulation crew leader, teacher, medical corps officer, lead case manager)? Give summary @ -Case was discussed with ED attending physician Dr. Mixon. Was smoking cessation discussed for >3mins.? @ -No Was critical care preformed (if so, how long)? @ -No Were there social determinants of health that impacted care today? How? (Homelessness, low income, unemployed, alcoholism, drug addiction, transportation, low edu. Level, literacy, decrease access to med. care, longterm, rehab)? @ -No Was there de-escalation of care discussed even if they declined (Discuss DNR or withdrawal of care, Hospice)? DNR status @ -No What co-morbidities impacted this encounter? (DM, HTN, Smoking, COPD, CAD, Cancer, CVA, ARF, Chemo, Hep., AIDS, mental health diagnosis, sleep apnea, morbid obesity)? @ -Kidney stones Was patient admitted / discharged? Hospital course, mention meds given and route, prescriptions, significant lab abnormalities, going to OR and other pertinent info. @ -Patient experiencing abdominal pain likely discomfort due to recent ureteral stent placement. Labs were fairly unremarkable. No obstructive stones were noted on CT. Patient will be discharged home with self-care. Patient to follow-up with urology as needed. Return precautions discussed. Undiagnosed new problem with uncertain prognosis? @ -No Drug Therapy requiring intensive monitoring for toxicity (Heparin, Nitro, Insulin, Cardizem)? @ -No Were any procedures done? @ -No Diagnosis/symptom? @ -Abdominal pain Acute, or Chronic, or Acute on Chronic? @ -Acute Uncomplicated (without systemic symptoms) or Complicated (systemic symptoms)? @ -Default Side effects of treatment? @ -No Exacerbation, Progression, or Severe Exacerbation? @ -No Poses a threat to life or bodily function? How? (Chest pain, USA, DC, pneumonia, PE, COPD, DKA, ARF, appy, cholecystitis, CVA, Diverticulitis, Homicidal, Suicidal, threat to staff... and all critical care pts) @ -No (Zara Toussaint) I personally saw the patient and performed the critical portion of the service. I discussed the patient care with the resident, Dr. Toussaint. I directed management, care planning and final disposition of the patient. This includes, but not limited to, review of all lab work, radiological studies, EKG's, consultations, vital signs, and nursing notes. EKG interpreted by me (3pts min.) @As above X-Rays interpreted by me (1 pt min.) @None CT interpreted by me ( 1pt min.) @CT shows no acute processes U/S interpreted by me (1 pt min.) @None Critical care time of 0 minutes excluding separately billable procedures was spent in conjunction with critical care activities provided by the Resident and Attending simultaneously. I was present during no procedures for all critical portions of the procedure and as immediately available to furnish service during the entire procedure. (Reynold Mixon) - Lab Data Lab Results 03/14/25 03/14/25 03/14/25 Range/Units 16:26 16:26 16:26 WBC 12.54 H (4.50-10.00) 10*3/uL RBC 5.26 (4.40-5.60) 10*6/uL Hgb 17.3 H (13.0-17.0) g/dL Hct 47.9 (39.6-50.0) % MCV 91.1 (80.0-97.0) fL MCH 32.9 H (27.0-32.0) pg MCHC 36.1 (32.0-37.0) g/dL Plt Count 260 (140-440) 10*3/uL MPV 10.2 (9.5-12.2) fL Immature Gran % (Auto) 0.4 % Neutrophils % 83.9 % Lymphocytes % 7.9 % Monocytes % 7.4 % Eosinophils % 0.2 % Basophils % 0.2 % Immature Gran # 0.05 H (0.00-0.04) 10*3/uL Neutrophils # 10.52 H (1.80-7.70) 10*3/uL Lymphocytes # 0.99 (0.90-5.00) 10*3/uL Monocytes # 0.93 (0.20-1.00) 10*3/uL Eosinophils # 0.02 L (0.04-0.35) 10*3/uL Basophils # 0.03 (0.00-0.10) 10*3/uL PT 12.5 (10.0-12.5) sec INR 1.2 H (<1.2) APTT 22.6 (22.0-30.0) sec Sodium 138 (137-145) mmol/L Potassium 4.1 (3.5-5.1) mmol/L Chloride 103 (98-107) mmol/L Carbon Dioxide 15 L (22-30) mmol/L Anion Gap 20 mmol/L BUN 12 (9-20) mg/dL Creatinine 0.77 (0.66-1.25) mg/dL Est GFR (CKD-EPI)AfAm >90 (>60 ml/min/1.73 sqM) Est GFR (CKD-EPI)NonAf >90 (>60 ml/min/1.73 sqM) Glucose 169 H (74-99) mg/dL Lactic Ac Sepsis Rflx Plasma Lactic Acid Hernan (0.7-2.0) mmol/L Calcium 9.7 (8.4-10.2) mg/dL Total Bilirubin 1.4 H (0.2-1.3) mg/dL AST 25 (17-59) U/L ALT 19 (4-49) U/L Alkaline Phosphatase 75 (38-126) U/L Total Protein 7.1 (6.3-8.2) g/dL Albumin 4.6 (3.5-5.0) g/dL Amylase 37 (30-110) U/L Lipase 45 (23-300) U/L Urine Color Urine Appearance (Clear) Urine pH (5.0-8.0) Ur Specific Ary (1.001-1.035) Urine Protein (Negative) Urine Glucose (UA) (Negative) Urine Ketones (Negative) Urine Blood (Negative) Urine Nitrite (Negative) Urine Bilirubin (Negative) Urine Urobilinogen (<2.0) mg/dL Ur Leukocyte Esterase (Negative) Urine RBC (0-5) /hpf Urine WBC (0-5) /hpf Urine Mucus (None) /hpf 03/14/25 03/14/25 03/14/25 Range/Units 16:26 17:02 18:12 WBC (4.50-10.00) 10*3/uL RBC (4.40-5.60) 10*6/uL Hgb (13.0-17.0) g/dL Hct (39.6-50.0) % MCV (80.0-97.0) fL MCH (27.0-32.0) pg MCHC (32.0-37.0) g/dL Plt Count (140-440) 10*3/uL MPV (9.5-12.2) fL Immature Gran % (Auto) % Neutrophils % % Lymphocytes % % Monocytes % % Eosinophils % % Basophils % % Immature Gran # (0.00-0.04) 10*3/uL Neutrophils # (1.80-7.70) 10*3/uL Lymphocytes # (0.90-5.00) 10*3/uL Monocytes # (0.20-1.00) 10*3/uL Eosinophils # (0.04-0.35) 10*3/uL Basophils # (0.00-0.10) 10*3/uL PT (10.0-12.5) sec INR (<1.2) APTT (22.0-30.0) sec Sodium (137-145) mmol/L Potassium (3.5-5.1) mmol/L Chloride (98-107) mmol/L Carbon Dioxide (22-30) mmol/L Anion Gap mmol/L BUN (9-20) mg/dL Creatinine (0.66-1.25) mg/dL Est GFR (CKD-EPI)AfAm (>60 ml/min/1.73 sqM) Est GFR (CKD-EPI)NonAf (>60 ml/min/1.73 sqM) Glucose (74-99) mg/dL Lactic Ac Sepsis Rflx Y Plasma Lactic Acid Hernan 2.6 H* (0.7-2.0) mmol/L Calcium (8.4-10.2) mg/dL Total Bilirubin (0.2-1.3) mg/dL AST (17-59) U/L ALT (4-49) U/L Alkaline Phosphatase (38-126) U/L Total Protein (6.3-8.2) g/dL Albumin (3.5-5.0) g/dL Amylase (30-110) U/L Lipase (23-300) U/L Urine Color Light Red Urine Appearance Cloudy (Clear) Urine pH 5.5 (5.0-8.0) Ur Specific Ary 1.021 (1.001-1.035) Urine Protein 2+ H (Negative) Urine Glucose (UA) Trace H (Negative) Urine Ketones 4+ H (Negative) Urine Blood Large H (Negative) Urine Nitrite Negative (Negative) Urine Bilirubin Negative (Negative) Urine Urobilinogen <2.0 (<2.0) mg/dL Ur Leukocyte Esterase Small H (Negative) Urine RBC >182 H (0-5) /hpf Urine WBC 55 H (0-5) /hpf Urine Mucus Rare H (None) /hpf Disposition Is patient prescribed a controlled substance at d/c from ED?: No Time of Disposition: 18:00 <Zara Toussaint - Last Filed: 03/14/25 19:11> <Reynold Mixon - Last Filed: 03/15/25 15:25> Clinical Impression: Abdominal pain Disposition: HOME SELF-CARE Additional Instructions: Every disease is a spectrum and a small chance still exists that a serious condition could develop, for this reason, please monitor yourself closely for new, changing or worsening symptoms, symptoms that persist beyond 48 hours, any further episodes of vomiting blood, difficulty in breathing, severe abdominal pain, symptoms that did not improve in the next 48 hours, black or bloody stools, fever, inability to tolerate/keep down fluids or your medications, inability to follow up with outpatient providers as instructed and should you experience these symptoms or should you have any further concerns for your wellbeing please return to the ED or call 911 immediately. PLEASE take prescriptions as listed in discharge instructions. PLEASE call your primary care physician as soon as possible to arrange / discuss plan for followup appointment. Appointment in the next 1-3 days is strongly encouraged if possible. PLEASE let us know here before you leave if there is anything further we can do to be of any assistance. Take care and feel Better! Referrals: Dixon Lee Jr, DO [Primary Care Provider] - 1-2 days
[2025-03-14] MEDS: ONDANSETRON 4 MG/2 ML VIAL IVP STA (16:20)
[2025-03-14] MEDS: HYDROmorphone 1 MG/ML 1 ML SYRINGE IVP STA (16:20)
[2025-03-14] MEDS: SODIUM CHLORIDE 0.9% 1,000 ML IV ONE (16:20)
[2025-03-14 16:39] LABS: Basophils # (A) 0.03 10*3/uL (0.00-0.10); Basophils % (A) 0.2 %; Eosinophils # (A) 0.02 10*3/uL (0.04-0.35); Eosinophils % (A) 0.2 %; HCT 47.9 % (39.6-50.0); HGB 17.3 g/dL (13.0-17.0); Lymphocytes # (A) 0.99 10*3/uL (0.90-5.00); Lymphocytes % (A) 7.9 %; MCH 32.9 pg (27.0-32.0); MCHC 36.1 g/dL (32.0-37.0); MCV 91.1 fL (80.0-97.0); Mean Platelet Volume 10.2 fL (9.5-12.2); Monocytes # (A) 0.93 10*3/uL (0.20-1.00); Monocytes % (A) 7.4 %; Neutrophils # (A) 10.52 10*3/uL (1.80-7.70); Neutrophils % (A) 83.9 %; Platelet Count 260 10*3/uL (140-440); RBC 5.26 10*6/uL (4.40-5.60); RDW 12.7 % (11.5-14.5); WBC 12.54 10*3/uL (4.50-10.00)
[2025-03-14 16:54] LABS: ALT 19 U/L (4-49); AST 25 U/L (17-59); African American GFR (CKD) >90 (>60 ml/min/1.73 sqM); Albumin 4.6 g/dL (3.5-5.0); Alkaline Phosphatase 75 U/L (38-126); Amylase 37 U/L (30-110); Anion Gap 20 mmol/L; Blood Urea Nitrogen 12 mg/dL (9-20); Calcium 9.7 mg/dL (8.4-10.2); Carbon Dioxide 15 mmol/L (22-30); Chloride 103 mmol/L (98-107); Glucose 169 mg/dL (74-99); INR 1.2 (<1.2); Lipase 45 U/L (23-300); Non-African American GFR(CKD) >90 (>60 ml/min/1.73 sqM); Partial Thromboplastin Time 22.6 sec (22.0-30.0); Potassium 4.1 mmol/L (3.5-5.1); Prothrombin Time 12.5 sec (10.0-12.5); Sodium 138 mmol/L (137-145); Total Bilirubin 1.4 mg/dL (0.2-1.3); Total Protein 7.1 g/dL (6.3-8.2)
--- NOTE | 2025-03-14 18:24 | CT ---
EXAMINATION TYPE: CT abdomen pelvis wo con DATE OF EXAM: 03/14/2025 5:33 PM COMPARISON: None. CLINICAL INDICATION: Male, 65 years old with history of abdominal pain, kidney stone suspected, Pt co mes to [facility] with complaint of Sharp LLQ abd pain with recent diagnosis of kidney stones and pt did have stent placed by Dr Chu. TECHNIQUE: Axial images were obtained from above the diaphragm to the pubic rami in the axial plane a t 5 mm thick sections. Reconstructed images are reviewed on the computer in the coronal plane. CONTRAST: mL of . Study performed without Oral Contrast DLP: 579.5 mGycm, Automated exposure control for dose reduction was used. FINDINGS: Limited CT sections are obtained the lung bases. The lung bases are clear. CT ABDOMEN: Liver: Normal Spleen: Normal Pancreas: Normal Adrenal glands: The adrenal glands are normal. Gallbladder: Normal Kidneys: No masses are evident. No hydronephrosis is present. Bilateral ureteral stents are present . There is a 1.2 cm calcification inferior pole left kidney without hydronephrosis. No hydroureter is evident. Some right perinephric stranding appears to be present. Tiny calcifications within the righ t kidney. Small cyst is present within the cortex mid lateral right kidney. Aorta: Vascular calcification is within the aorta. Inferior vena cava: Normal. CT PELVIS: There is significant beam hardening artifact through the lower pelvis from bilateral hip p rostheses. No free air is identified. No suspicious fluid collections within the abdomen or pelvis. Loops of bowel within the abdomen and pelvis are normal. There is diverticular change within the sig moid colon. No acute diverticulitis is evident. This study is without oral contrast. Appendix: Normal as visualized. Urinary bladder: Very limited in evaluation due to beam hardening artifact from bilateral hip prosthe ses. Genitourinary structures: Prostate cannot be visualized Osseous structures: No suspicious lytic or sclerotic lesions. IMPRESSION: 1. Nonobstructing 1.2 cm calcification inferior pole left kidney. 2. Punctate nonobstructing right renal stone. 3. Bilateral ureteral stents. 4. Diverticulosis without acute diverticulitis. 5. No suspicious change to account for left lower quadrant sharp pain [facility], , 03/14/2025 6:22 PM
[2025-03-14 18:40] LABS: Appearance,Urine Cloudy (Clear); Bilirubin,Urine Negative (Negative); Blood,Urine Large (Negative); Color,Urine Light Red; Glucose,Urine (UA) Trace (Negative); Ketones,Urine 4+ (Negative); Leukocyte Esterase,Urine Small (Negative); Mucus,Urine Rare /hpf; Nitrite,Urine Negative (Negative); PH, Urine 5.5 (5.0-8.0); Protein,Urine 2+ (Negative); RBC,Urine >182 /hpf (0-5); Specific Gravity,Urine 1.021 (1.001-1.035); Urobilinogen,Urine <2.0 mg/dL (<2.0); WBC,Urine 55 /hpf (0-5)
[2025-03-14 19:15] VITALS: BP 132/78; PULSE 72; TEMP 98.8
== END 2025-03-14 19:21 | disposition home or self-care (01) ==
LOC: EC 14:55
DX: N20.0 Calculus of kidney (principal)
CPT/HCPCS: 36415; 80053; 82150; 83605; 83690; 85025; 85610; 85730; 81001; 87086; 74176; 99284; 96374; 96375; 96361; J2405; J1171

== ENCOUNTER 2025-03-19 09:14 | Day surgery (SDC) | payer MEDICARE ==
--- NOTE | 2025-03-19 08:38 | P.HPIHPCON ---
History of Present Illness H&P Date: 03/19/25 Chief Complaint: Bilateral ureteral stones This is a 65-year-old male with a history of bilateral ureteral stones, and a left renal stone status post cystoscopy and bilateral stent insertion on March 07. Presents today for bilateral ureteroscopy with holmium laser. He is aware of the risk which include but not limited to bleeding, infection, injury to the ureter Consent for Procedure: I have explained the operation/procedure to the patient, including the risks, benefits, side effects, alternative therapies (including not receiving the proposed treatment or service), the likelihood of the patient achieving his/her goals, and potential recuperation problems for the procedure/sedation/analgesia, as well as any blood products, if indicated. I also explained to the patient the risks, benefits and side effects of the alternatives, as well as the risks related to not receiving the proposed procedure, care, treatment, or services. Past Medical History Past Medical History: Diabetes Mellitus, Hyperlipidemia, Hypertension, Osteoarthritis (OA) Additional Past Medical History / Comment(s): current kidney stones- with recent admit History of Any Multi-Drug Resistant Organisms: None Reported Past Surgical History: Hernia Repair, Orthopedic Surgery Additional Past Surgical History / Comment(s): bilat knee scope, bilateral hip replacement, hernia repair two years ago. kidney stent. colonoscopy Past Anesthesia/Blood Transfusion Reactions: No Reported Reaction Additional Past Anesthesia/Blood Transfusion Reaction / Comment(s): claustrophobia Smoking Status: Never smoker - Past Family History Mother Family Medical History: Cancer Father Family Medical History: Cancer Additional Family Medical History / Comment(s): glaucoma Medications and Allergies Home Medications Medication Instructions Recorded Confirmed Type metFORMIN HCL [Glucophage] 500 mg PO DAILY 08/23/17 03/15/25 History Insulin Glargine,Hum.rec.anlog 10 units SQ HS 01/18/23 03/15/25 History [Lantus Solostar Pen] Atorvastatin [Lipitor] 10 mg PO DAILY 03/07/25 03/15/25 History Insulin Lispro [humaLOG Kwikpen] See Protocol SQ AC-TID 03/07/25 03/15/25 History lisinopriL [Zestril] 10 mg PO DAILY 03/07/25 03/15/25 History Hydrocodone/Acetaminophen 1 tab PO DIRECTED PRN 03/15/25 03/15/25 History [Hydrocodone/Acetaminophen 10-300 mg] Ondansetron Odt [Zofran ODT] 8 mg PO DIRECTED PRN 03/15/25 03/15/25 History Allergies Allergy/AdvReac Type Severity Reaction Status Date / Time No Known Allergies Allergy Verified 03/15/25 10:51 Surgical - Exam - General no distress, no pain - Eyes normal ocular movement - ENT normal nares, normal mucosa - Respiratory normal expansion, normal respiratory effort - Abdomen Abdomen: soft, non tender, no distended Assessment and Plan Assessment: OR for bilateral ureteroscopy, laser lithotripsy, stone basketing and stent removal
[~2025-03-19 09:14] MED LIST changes: -ACETAMINOPHEN TAB 500 MG TAB PO ONE; +LIDOCAINE 1% (10MG/ML) FOR IV START INTRADERMA PRN; -MELOXICAM 7.5 MG TAB PO ONE; -ONDANSETRON 4 MG/2 ML VIAL IVP PRN; -ROPIVACAINE 246.25 MG, EPINEPHrine 0.5 MG, KETOROLAC 30 MG, cloNIDine HCL/PF 80 MCG, WA... MISCELLANE ONE; -TRANEXAMIC ACID 1,000 MG in SODIUM CHLORIDE 0.9% 100 ML IVPB ONE; -ceFAZolin 2 GM in SODIUM CHLORIDE 0.9% 100 ML IVPB ONE
--- NOTE | 2025-03-19 10:03 | XR ---
EXAMINATION TYPE: XR KUB DATE OF EXAM: 03/19/2025 9:54 AM COMPARISON: None CLINICAL INDICATION: Male, 65 years old with history of N20.0; PHH, pain TECHNIQUE: One radiographic view of the abdomen was obtained. FINDINGS: Solitary mildly dilated small bowel loop left upper quadrant at 4.0 cm probably transient f rom gassy bowel. Moderate stool in the right side of the colon. Bilateral vas deferens calcifications noted. Bilateral ureteral stents are present. There is a 7 mm stone along the middle third right ure ter. There is a 7 mm stone along the upper third left ureter. Additional underlying left-sided renal calculi measuring up to 7 mm. Partially visualized bilateral total hip arthroplasties. IMPRESSION: Bilateral ureteral stents in place. A 7 mm stone along the mid right ureter and a 7 mm stone along th e proximal left ureter. Additional underlying left-sided nephrolithiasis measuring up to 7 mm. [facility], Workstation: [employer], 03/19/2025 10:00 AM
[2025-03-19 10:20] LABS: Glucose,Whole Blood 192 mg/dL (70-110)
[2025-03-19] MEDS: IV FLUID CONTINUATION 1,000 ML IV ONE ×2 (10:21→13:15)
[2025-03-19 10:25] VITALS: RESP 16
[2025-03-19] MEDS ORDERED: LIDOCAINE 1% INJ 10MG/ML (20 ML MDV) ONE (10:28)
[2025-03-19] MEDS ORDERED: PHENYLEPHRINE 10 MG/ML VIAL ONE (10:28)
[2025-03-19] MEDS: ONDANSETRON 4 MG/2 ML VIAL IVP ONE (10:28)
[2025-03-19] MEDS: MIDAZOLAM 2 MG/2 ML VIAL IV PRN (10:28)
[2025-03-19] MEDS ORDERED: SUCCINYLCHOLINE CHLORIDE 200 MG/10 ML VIAL IV ONE (10:28)
[2025-03-19] MEDS ORDERED: PROPOFOL 10 MG/ML 20 ML VIAL IV ONE (10:28)
[2025-03-19] MEDS: DEXAMETHASONE SOD PHOSPHATE 4 MG/ML 1 ML VIAL IV ONE (10:28)
[2025-03-19] MEDS ORDERED: fentaNYL (PF) 50 MCG/ML 2 ML AMP ONE (10:28)
[2025-03-19] MEDS: fentaNYL (PF) 50 MCG/ML 2 ML AMP IVP PRN (10:29)
[2025-03-19] MEDS: LACTATED RINGERS 1,000 ML IV SCH (10:29)
[2025-03-19] MEDS: ceFAZolin 2 GM in DEXTROSE 5% IN WATER 50 ML IVPB PRN (10:47)
[2025-03-19 11:49] VITALS: TEMP 97.6
[2025-03-19 11:52] LABS: Glucose,Whole Blood 200 mg/dL (70-110)
[2025-03-19] MEDS: HYDROmorphone 0.5 MG/0.5 ML SYRINGE IVP PRN (11:58)
[2025-03-19] MEDS: KETOROLAC 15 MG/ML 1 ML VIAL IVP STA (12:46)
--- NOTE | 2025-03-19 12:58 | P.OP ---
Date of Procedure: 03/19/25 Preoperative Diagnosis: bilateral ureteral stone Postoperative Diagnosis: same Procedure(s) Performed: cystoscopy bilateral ureteroscopy, holmium laser, stone basketing, and left stent insertion, right stent removal Implants: 6 Austrian by 24 centimeter stent in the left ureter left on a string Anesthesia: JUSTA Surgeon: Ike Jenkins Estimated Blood Loss (ml): 5 Pathology: other (Bilateral kidney stones) Condition: stable Disposition: PACU Indications for Procedure: This is a 65-year-old male with a history of bilateral ureteral stones, and a left renal stone status post cystoscopy and bilateral stent insertion on March 07. Presents today for bilateral ureteroscopy with holmium laser. He is aware of the risk which include but not limited to bleeding, infection, injury to the ureter Operative Findings: Right-sided proximal stone, left proximal stone, left renal pelvis stone, all stones successfully fragmented Description of Procedure: Patient brought to the operating room, general anesthesia was induced. He was prepped and draped in sterile fashion and placed in a dorsolithotomy position. Cystoscopy fitted with a 22 Austrian sheath was inserted per urethra. Cystoscopy was performed showed no abnormality within the bladder. The right stent was visualized and grasped using the stent grasper, the stent was removed intact. At this time a semirigid ureteroscope was inserted per urethra and advanced up the right ureteral orifice a stone was encountered in the proximal ureter, I was unable to fragment the stone given the angle of the stone at that level, this time a wire was advanced through the ureteroscope and the ureteroscope was withdrawn with the wire in place. Next an 1113 Austrian access sheath was passed over the wire, the sheath was advanced distal to the stone, of note the stone was radiopaque. At this time the flexible ureteroscope was inserted through the access sheath, ureteroscopy was performed which showed stone at the proximal ureter. Using the holmium laser the stone was fragmented, stone fragments were removed using the stone basket. At this time the ureteroscope was advanced to the kidney, and renoscopy was performed which showed no additional fragments, or stones in the kidney. Pullback ureteroscopy was performed showed no ureteral stone or any injury to the ureter. At this time the cystoscope was reinserted into the bladder, the left ureteral orifice was visualized and intubated with a sensor wire, the wire was advanced under fluoroscopy and into the kidney, on fluoroscopy there was a proximal ureteral stone, and a stone in the renal pelvis. At this time an access sheath was advanced over the wire and into the mid ureter under fluoroscopy. The flexible ureteroscope was inserted through the access sheath, the stone in the proximal ureter and the renal pelvis was fragmented using the holmium laser, there was an additional stone in the lower pole that was also fragmented, sizable fragments were removed using the stone basket. Repeat ureteroscopy showed no sizable fragments within the kidney or injury to the kidney, on fluoroscopy there was no radiopaque density seen. Pullback ureteroscopy was performed showed no injury to the ureter or any ureteral stones, there was slight edema at the proximal ureter, given this finding decision was made to proceed with a stent, at this time as the ureteroscope was withdrawn a sensor wire was advanced through. Next a ureteral stent was passed over the wire, the proximal curl was visualized on fluoroscopy and the distal curl was visualized using the cystoscope. The stent was left on a string and taped to the patient penis. The bladder was emptied at the end of the case. Patient tolerated procedure well was taken recovery in stable condition
[2025-03-19] MEDS: HYDROcodone/APAP 5-325MG 1 EACH TAB PO STA (13:12)
[2025-03-19 13:37] VITALS: BP 135/75; PULSE 86
--- NOTE | 2025-03-19 16:28 | FL ---
EXAMINATION TYPE: FL guidance operating room DATE OF EXAM: 03/19/2025 FLUOROSCOPY Cysto for bilateral stones with Dr. Jenkins 7.1 sec fluoro time .[id number] DAP LC 2 images are submitted. [facility], , 03/19/2025 4:26 PM
== END 2025-03-19 14:40 | disposition home or self-care (01) ==
LOC: OR 09:14
PROVIDERS: ATTEND Urology
DX: N20.1 Calculus of ureter (principal); E11.9 Type 2 diabetes mellitus without complications; E78.5 Hyperlipidemia, unspecified; I10 Essential (primary) hypertension; M19.90 Unspecified osteoarthritis, unspecified site; Z79.4 Long term (current) use of insulin; Z79.84 Long term (current) use of oral hypoglycemic drugs; Z98.890 Other specified postprocedural states; Z79.899 Other long term (current) drug therapy
CPT/HCPCS: 52356; 52353; 82365; 74018; C1769; J2250; J0330; J1100; J0690; J2405; J2003; J3010; J1885; J2704; J1171; J2371